=== PATIENT | male | born 1945 | race Caucasian/White ===

== ENCOUNTER → 2016-07-20 | Outpatient (CLI) | payer OTHER ==
[~2016-07-20] MED LIST: ATEN-60; FLUT100M7; FURO40TA OR; HYDR-1421 OR; IBUP1POW8; LASIX; POTA-167 OR; SIMV-8; TIOTCAP; TRIATAB3 OR
[2016-07-20 13:19] LABS: Basophils # (auto) 0.1 uL; Basophils % (auto) 0.9 % (0.0-2.0); DEFINITIVE VIEW TRANSMISSION; Eosinophils # (auto) 0.9 uL; Eosinophils % (auto) 11.4 % (0.0-7.0); Hematocrit 41.7 % (41.0-53.0); Hemoglobin 12.6 g/dL (13.5-17.5); Lymphocytes # (auto) 1.3 uL; Lymphocytes % (auto) 15.8 % (10.0-50.0); Mean Corpuscular Hemoglobin 26.2 pg (28.0-32.0); Mean Corpuscular Hgb Conc. 30.2 g/dL (32.0-36.0); Mean Corpuscular Volume 86.7 fL (80.0-100.0); Mean Platelet Volume 7.8 fL (7.4-10.4); Monocytes # (auto) 0.8 uL; Monocytes % (auto) 9.9 % (0.0-12.0); Neutrophils # (auto) 4.9 uL; Platelet Count (auto) 337 10^3/uL (140-450); Red Cell Distribution Width 16.2 % (11.6-16.0)
[2016-07-20 13:32] LABS: Urine Bilirubin Negative (Negative); Urine Blood Negative /uL (Negative); Urine Color Yellow (Yellow); Urine Glucose Normal (Normal); Urine Hyaline Cast FEW /lpf (0 - 2); Urine Ketone Negative (Negative); Urine Nitrite Negative (Negative); Urine RBC <1 /hpf (0 - 3); Urine Squamous Epithelial Cell FEW /hpf (<5); Urine Urobilinogen Normal (Negative); Urine pH 5.5 (5.0-8.0)
[2016-07-20 13:50] LABS: Potassium 4.3 mmol/L (3.5-5.1)
[2016-07-20 13:57] LABS: Albumin 3.3 g/dL (3.4-5.0); BUN/Creatinine Ratio 23.4; Calcium 9.3 mg/dL (8.5-10.1)
[2016-07-20 14:56] LABS: Bilirubin, Total 0.4 mg/dL (0.2-1.0); Total Protein 7.6 g/dL (6.4-8.2)
[2016-07-20 19:00] LABS: Uric Acid 9.5 mg/dL (3.5-7.2)
== END | disposition home or self-care (01) ==
LOC: LAB 12:24
DX: Z00.00 Encounter for general adult medical examination without abnormal findings (principal); N40.0 Benign prostatic hyperplasia without lower urinary tract symptoms; I10 Essential (primary) hypertension; N18.3 Chronic kidney disease, stage 3 (moderate)
CPT/HCPCS: 36415; 80053; 80061; 81001; 83615; 84153; 84154; 84443; 84550; 85025

== ENCOUNTER → 2016-08-10 | Outpatient (CLI) | payer OTHER | END | disposition home or self-care (01) | LOC: LAB 12:00 | DX: R91.8 Other nonspecific abnormal finding of lung field (principal); J98.4 Other disorders of lung | CPT/HCPCS: 36415; 82565; 84520 ==

== ENCOUNTER → 2016-08-29 | Outpatient (CLI) | payer OTHER ==
[~2016-08-29] MED LIST changes: +ALBUAER3 IN; +ALEN35TA18 PO; +ALL100T PO; -TIOTCAP; +TIOTCAP IN
== END | disposition home or self-care (01) ==
LOC: LAB 10:00
PROVIDERS: ATTEND Physician Assistant
DX: L57.0 Actinic keratosis (principal)

== ENCOUNTER → 2016-09-02 | Outpatient (CLI) | payer OTHER ==
[2016-09-02 14:21] LABS: Basophils # (auto) 0 uL; Basophils % (auto) 0.5 % (0.0-2.0); DEFINITIVE VIEW TRANSMISSION; Eosinophils # (auto) 0.9 uL; Eosinophils % (auto) 10.3 % (0.0-7.0); Hemoglobin 12.3 g/dL (13.5-17.5); Lymphocytes # (auto) 1.5 uL; Lymphocytes % (auto) 17.8 % (10.0-50.0); Mean Corpuscular Hemoglobin 27.5 pg (28.0-32.0); Mean Corpuscular Hgb Conc. 32.5 g/dL (32.0-36.0); Mean Corpuscular Volume 84.6 fL (80.0-100.0); Mean Platelet Volume 7.7 fL (7.4-10.4); Monocytes # (auto) 0.8 uL; Monocytes % (auto) 9.9 % (0.0-12.0); Neutrophils # (auto) 5.2 uL; Neutrophils % (auto) 61.5 % (37.0-80.0); Platelet Count (auto) 402 10^3/uL (140-450); Red Cell Distribution Width 16.3 % (11.6-16.0); White Blood Cell 8.4 10^3/uL (4.4-10.8)
[2016-09-02 14:40] LABS: INR 0.99 (0.9-1.15); Prothrombin Time 10.2 sec (9.37-12.3)
== END | disposition home or self-care (01) ==
LOC: LAB 13:39
PROVIDERS: ATTEND Internal Medicine Pulmonary Disease
DX: Z01.812 Encounter for preprocedural laboratory examination (principal)
CPT/HCPCS: 36415; 85025; 85610; 85730

== ENCOUNTER → 2016-09-05 | Day surgery (SDC) | payer OTHER ==
[~2016-09-05] VITALS: Ht 175.3 cm; Wt 103.0 kg
[~2016-09-05] MED LIST changes: +EPINEPHrine HCL 1 MG/1 ML AMP ONE; +FLUMAZENIL 0.1 MG/ML INJ 10ML MDV IV ONE; -FLUT100M7; -HYDR-1421 OR; -IBUP1POW8; -LASIX; +LIDOCAINE 2%HCL (LOCAL ANESTH.) INJ 20ML MDV IN ONE; +LIDOCAINE 2%HCL (LOCAL ANESTH.) INJ 20ML MDV ONE; +LIDOCAINE HCL 2 % INJ 2ML MPF NEB ONE; +LIDOCAINE HCL 2% TOP JELLY 5ML TOP ONE; +MEPERIDINE HCL (50 MG/ML) 1 ML VIAL IM ONE; +SODIUM CHLORIDE LOCK 30 ML ONE; -TRIATAB3 OR
[2016-09-05] MEDS: MIDAZOLAM HCL 5 MG/ML-1ML VIAL ONE ×5 (14:43→15:06)
[2016-09-05 16:22] VITALS: BP 103/65
== END | disposition home or self-care (01) ==
LOC: GI 12:19
PROVIDERS: ATTEND Internal Medicine Pulmonary Disease
DX: C34.12 Malignant neoplasm of upper lobe, left bronchus or lung (principal); J44.9 Chronic obstructive pulmonary disease, unspecified; I50.9 Heart failure, unspecified; J43.9 Emphysema, unspecified; E66.9 Obesity, unspecified; Z87.891 Personal history of nicotine dependence
CPT/HCPCS: 31625; 87070; 87205; 94640; J0171; J2175; J2250

== ENCOUNTER → 2016-09-28 | Outpatient (CLI) | payer OTHER ==
[~2016-09-28] MED LIST changes: -EPINEPHrine HCL 1 MG/1 ML AMP ONE; -FLUMAZENIL 0.1 MG/ML INJ 10ML MDV IV ONE; -LIDOCAINE 2%HCL (LOCAL ANESTH.) INJ 20ML MDV IN ONE; -LIDOCAINE 2%HCL (LOCAL ANESTH.) INJ 20ML MDV ONE; -LIDOCAINE HCL 2 % INJ 2ML MPF NEB ONE; -LIDOCAINE HCL 2% TOP JELLY 5ML TOP ONE; -MEPERIDINE HCL (50 MG/ML) 1 ML VIAL IM ONE; -SODIUM CHLORIDE LOCK 30 ML ONE
[2016-09-28 13:30] LABS: Basophils # (auto) 0.1 uL; Basophils % (auto) 0.8 % (0.0-2.0); DEFINITIVE VIEW TRANSMISSION; Eosinophils % (auto) 11.7 % (0.0-7.0); Hematocrit 37.2 % (41.0-53.0); Hemoglobin 11.8 g/dL (13.5-17.5); Lymphocytes # (auto) 1.4 uL; Lymphocytes % (auto) 16.6 % (10.0-50.0); Mean Corpuscular Hgb Conc. 31.6 g/dL (32.0-36.0); Mean Corpuscular Volume 85.5 fL (80.0-100.0); Mean Platelet Volume 7.2 fL (7.4-10.4); Monocytes # (auto) 0.7 uL; Monocytes % (auto) 8.6 % (0.0-12.0); Neutrophils # (auto) 5.3 uL; Neutrophils % (auto) 62.3 % (37.0-80.0); Platelet Count (auto) 365 10^3/uL (140-450); Red Cell Distribution Width 16.2 % (11.6-16.0); White Blood Cell 8.6 10^3/uL (4.4-10.8)
[2016-09-28 13:46] LABS: INR 0.94 (0.9-1.15); Prothrombin Time 10.2 sec (9.37-12.3)
== END | disposition home or self-care (01) ==
LOC: LAB 13:10
PROVIDERS: ATTEND Internal Medicine
DX: Z01.812 Encounter for preprocedural laboratory examination (principal)
CPT/HCPCS: 36415; 85025; 85610; 85730

== ENCOUNTER → 2016-09-29 | Outpatient (CLI) | payer OTHER ==
[~2016-09-29] MED LIST changes: +FLUMAZENIL 0.1 MG/ML INJ 10ML MDV IV ONE; +LIDOCAINE 2%HCL (LOCAL ANESTH.) INJ 20ML MDV ONE; +MIDAZOLAM HCL 1MG/1ML-2 ML VIAL ONE; +NALOXONE HCL 0.4 MG/ML VIAL ONE; +fentaNYL CITRATE 100 MCG/2 ML VL ONE; +methylPREDNISolone SOD SUCC 125 MG/2 ML VL ONE
== END | disposition home or self-care (01) ==
LOC: CT 08:46
PROVIDERS: ATTEND Internal Medicine
DX: R91.8 Other nonspecific abnormal finding of lung field (principal); Z87.891 Personal history of nicotine dependence; I51.7 Cardiomegaly; J81.1 Chronic pulmonary edema; J98.11 Atelectasis
CPT/HCPCS: 10022; 71010; 71250; 77012; J2250; J3010

== ENCOUNTER → 2016-10-24 | Outpatient (CLI) | payer OTHER ==
[~2016-10-24] MED LIST changes: -FLUMAZENIL 0.1 MG/ML INJ 10ML MDV IV ONE; -LIDOCAINE 2%HCL (LOCAL ANESTH.) INJ 20ML MDV ONE; -MIDAZOLAM HCL 1MG/1ML-2 ML VIAL ONE; -NALOXONE HCL 0.4 MG/ML VIAL ONE; -fentaNYL CITRATE 100 MCG/2 ML VL ONE; -methylPREDNISolone SOD SUCC 125 MG/2 ML VL ONE
== END | disposition home or self-care (01) ==
LOC: LAB 10:00
PROVIDERS: ATTEND Physician Assistant
DX: C44.42 Squamous cell carcinoma of skin of scalp and neck (principal)

== ENCOUNTER → 2016-11-04 | Outpatient (CLI) | payer OTHER ==
[2016-11-04 11:39] LABS: Basophils # (auto) 0 uL; Basophils % (auto) 0.5 % (0.0-2.0); DEFINITIVE VIEW TRANSMISSION; Eosinophils # (auto) 0.9 uL; Eosinophils % (auto) 11.8 % (0.0-7.0); Hematocrit 35.2 % (41.0-53.0); Hemoglobin 11.4 g/dL (13.5-17.5); Lymphocytes # (auto) 1.1 uL; Lymphocytes % (auto) 14.5 % (10.0-50.0); Mean Corpuscular Hemoglobin 27.2 pg (28.0-32.0); Mean Corpuscular Hgb Conc. 32.4 g/dL (32.0-36.0); Mean Corpuscular Volume 84.1 fL (80.0-100.0); Mean Platelet Volume 6.8 fL (7.4-10.4); Monocytes # (auto) 0.9 uL; Monocytes % (auto) 11.7 % (0.0-12.0); Neutrophils # (auto) 4.6 uL; Neutrophils % (auto) 61.5 % (37.0-80.0); Platelet Count (auto) 374 10^3/uL (140-450); Red Cell Distribution Width 16.7 % (11.6-16.0); White Blood Cell 7.5 10^3/uL (4.4-10.8)
[2016-11-04 12:01] LABS: BUN/Creatinine Ratio 25.9; Bilirubin, Total 0.3 mg/dL (0.2-1.0); Potassium 4.7 mmol/L (3.5-5.1); Total Protein 7.4 g/dL (6.4-8.2)
== END | disposition home or self-care (01) ==
LOC: LAB 11:25
PROVIDERS: ATTEND Internal Medicine
DX: C34.12 Malignant neoplasm of upper lobe, left bronchus or lung (principal)
CPT/HCPCS: 36415; 80053; 83615; 85025

== ENCOUNTER → 2016-11-15 | Outpatient (CLI) | payer OTHER ==
[2016-11-15 08:52] LABS: Albumin 2.8 g/dL (3.4-5.0); BUN/Creatinine Ratio 24.3; Bilirubin, Total 0.4 mg/dL (0.2-1.0); Potassium 4.1 mmol/L (3.5-5.1); Total Protein 7.4 g/dL (6.4-8.2)
[2016-11-15 08:56] LABS: Basophils # (auto) 0 uL; Basophils % (auto) 0.4 % (0.0-2.0); Eosinophils # (auto) 0.7 uL; Eosinophils % (auto) 6.5 % (0.0-7.0); Hematocrit 34.1 % (41.0-53.0); Hemoglobin 11.1 g/dL (13.5-17.5); Lymphocytes # (auto) 1.4 uL; Lymphocytes % (auto) 13.2 % (10.0-50.0); Mean Corpuscular Hemoglobin 27.4 pg (28.0-32.0); Mean Corpuscular Hgb Conc. 32.7 g/dL (32.0-36.0); Mean Corpuscular Volume 83.9 fL (80.0-100.0); Mean Platelet Volume 7.7 fL (7.4-10.4); Monocytes % (auto) 9.7 % (0.0-12.0); Neutrophils # (auto) 7.4 uL; Neutrophils % (auto) 70.2 % (37.0-80.0); Platelet Count (auto) 421 10^3/uL (140-450); Red Cell Distribution Width 16.3 % (11.6-16.0); White Blood Cell 10.5 10^3/uL (4.4-10.8)
== END | disposition home or self-care (01) ==
LOC: LAB 07:59
PROVIDERS: ATTEND Internal Medicine
DX: C34.12 Malignant neoplasm of upper lobe, left bronchus or lung (principal)
CPT/HCPCS: 36415; 80053; 83615; 85025

== ENCOUNTER → 2016-11-18 | Outpatient (CLI) | payer OTHER ==
[2016-11-18 13:24] LABS: Basophils # (auto) 0 uL; Basophils % (auto) 0.6 % (0.0-2.0); Eosinophils # (auto) 0.1 uL; Eosinophils % (auto) 1.7 % (0.0-7.0); Hemoglobin 11.6 g/dL (13.5-17.5); Lymphocytes # (auto) 1.4 uL; Lymphocytes % (auto) 16.8 % (10.0-50.0); Mean Corpuscular Hemoglobin 27.4 pg (28.0-32.0); Mean Corpuscular Hgb Conc. 32.3 g/dL (32.0-36.0); Mean Corpuscular Volume 84.7 fL (80.0-100.0); Mean Platelet Volume 7.5 fL (7.4-10.4); Monocytes # (auto) 0.3 uL; Monocytes % (auto) 3.8 % (0.0-12.0); Neutrophils # (auto) 6.5 uL; Neutrophils % (auto) 77.1 % (37.0-80.0); Platelet Count (auto) 396 10^3/uL (140-450); Red Cell Distribution Width 16.8 % (11.6-16.0); White Blood Cell 8.5 10^3/uL (4.4-10.8)
[2016-11-18 13:33] LABS: Albumin 2.9 g/dL (3.4-5.0); BUN/Creatinine Ratio 26.5; Bilirubin, Total 0.4 mg/dL (0.2-1.0); Calcium 9.1 mg/dL (8.5-10.1); Potassium 4.9 mmol/L (3.5-5.1); Total Protein 7.4 g/dL (6.4-8.2)
== END | disposition home or self-care (01) ==
LOC: LAB 12:57
PROVIDERS: ATTEND Internal Medicine
DX: C34.12 Malignant neoplasm of upper lobe, left bronchus or lung (principal)
CPT/HCPCS: 36415; 80053; 85025

== ENCOUNTER → 2016-11-25 | Outpatient (CLI) | payer OTHER ==
[2016-11-25 13:14] LABS: Basophils # (auto) 0 uL; Basophils % (auto) 0.6 % (0.0-2.0); Eosinophils # (auto) 0.1 uL; Eosinophils % (auto) 2.2 % (0.0-7.0); Hematocrit 36.1 % (41.0-53.0); Hemoglobin 11.7 g/dL (13.5-17.5); Lymphocytes # (auto) 1.2 uL; Lymphocytes % (auto) 25.3 % (10.0-50.0); Mean Corpuscular Hemoglobin 27.2 pg (28.0-32.0); Mean Corpuscular Hgb Conc. 32.4 g/dL (32.0-36.0); Mean Platelet Volume 7.5 fL (7.4-10.4); Monocytes # (auto) 0.2 uL; Monocytes % (auto) 3.8 % (0.0-12.0); Neutrophils # (auto) 3.3 uL; Neutrophils % (auto) 68.1 % (37.0-80.0); Platelet Count (auto) 345 10^3/uL (140-450); Red Cell Distribution Width 17.1 % (11.6-16.0); White Blood Cell 4.9 10^3/uL (4.4-10.8)
[2016-11-25 13:39] LABS: Albumin 3.1 g/dL (3.4-5.0); BUN/Creatinine Ratio 26.3; Bilirubin, Total 0.5 mg/dL (0.2-1.0); Potassium 4.4 mmol/L (3.5-5.1); Total Protein 7.4 g/dL (6.4-8.2)
== END | disposition home or self-care (01) ==
LOC: LAB 12:45
PROVIDERS: ATTEND Internal Medicine
DX: C34.12 Malignant neoplasm of upper lobe, left bronchus or lung (principal)
CPT/HCPCS: 36415; 80053; 85025

== ENCOUNTER → 2016-12-05 | Outpatient (CLI) | payer OTHER ==
[2016-12-05 08:22] LABS: Basophils # (auto) 0 uL; Basophils % (auto) 0.2 % (0.0-2.0); CONDITION Y; Eosinophils # (auto) 0.1 uL; Eosinophils % (auto) 2.2 % (0.0-7.0); Hemoglobin 10.9 g/dL (13.5-17.5); Lymphocytes # (auto) 0.8 uL; Lymphocytes % (auto) 28.3 % (10.0-50.0); Mean Corpuscular Hemoglobin 27.9 pg (28.0-32.0); Mean Corpuscular Hgb Conc. 33.1 g/dL (32.0-36.0); Mean Corpuscular Volume 84.2 fL (80.0-100.0); Mean Platelet Volume 7.1 fL (7.4-10.4); Monocytes # (auto) 0.2 uL; Monocytes % (auto) 6.1 % (0.0-12.0); Neutrophils # (auto) 1.8 uL; Neutrophils % (auto) 63.2 % (37.0-80.0); Platelet Count (auto) 181 10^3/uL (140-450); Red Cell Distribution Width 16.9 % (11.6-16.0); White Blood Cell 2.9 10^3/uL (4.4-10.8)
[2016-12-05 08:45] LABS: BUN/Creatinine Ratio 17.9; Bilirubin, Total 0.3 mg/dL (0.2-1.0); Calcium 8.5 mg/dL (8.5-10.1); Potassium 3.8 mmol/L (3.5-5.1); Total Protein 6.6 g/dL (6.4-8.2)
== END | disposition home or self-care (01) ==
LOC: LAB 08:05
PROVIDERS: ATTEND Internal Medicine
DX: C34.12 Malignant neoplasm of upper lobe, left bronchus or lung (principal)
CPT/HCPCS: 36415; 80053; 83615; 85025

== ENCOUNTER → 2016-12-09 | Outpatient (CLI) | payer OTHER ==
[2016-12-09 15:01] LABS: Basophils # (auto) 0 uL; Basophils % (auto) 0.4 % (0.0-2.0); CONDITION Y; Eosinophils # (auto) 0 uL; Hematocrit 32.6 % (41.0-53.0); Hemoglobin 10.8 g/dL (13.5-17.5); Lymphocytes # (auto) 0.8 uL; Lymphocytes % (auto) 21.5 % (10.0-50.0); Mean Corpuscular Hemoglobin 28.2 pg (28.0-32.0); Mean Corpuscular Hgb Conc. 33.1 g/dL (32.0-36.0); Mean Corpuscular Volume 85.2 fL (80.0-100.0); Mean Platelet Volume 7.7 fL (7.4-10.4); Monocytes # (auto) 0.1 uL; Monocytes % (auto) 1.6 % (0.0-12.0); Neutrophils % (auto) 75.5 % (37.0-80.0); Platelet Count (auto) 146 10^3/uL (140-450); Red Cell Distribution Width 17.9 % (11.6-16.0); White Blood Cell 3.9 10^3/uL (4.4-10.8)
[2016-12-09 15:23] LABS: Albumin 3.1 g/dL (3.4-5.0); BUN/Creatinine Ratio 20.6; Bilirubin, Total 0.5 mg/dL (0.2-1.0); Calcium 8.9 mg/dL (8.5-10.1); Potassium 4.7 mmol/L (3.5-5.1); Total Protein 6.5 g/dL (6.4-8.2)
== END | disposition home or self-care (01) ==
LOC: LAB 14:48
PROVIDERS: ATTEND Internal Medicine
DX: C34.12 Malignant neoplasm of upper lobe, left bronchus or lung (principal)
CPT/HCPCS: 36415; 80053; 83615; 85025

== ENCOUNTER → 2016-12-19 | Outpatient (CLI) | payer OTHER ==
[2016-12-19 09:59] LABS: Basophils # (auto) 0 uL; Basophils % (auto) 0.7 % (0.0-2.0); CONDITION Y; DEFINITIVE SEE PRINTOUT; Eosinophils # (auto) 0 uL; Hematocrit 30.2 % (41.0-53.0); Hemoglobin 10.3 g/dL (13.5-17.5); Lymphocytes # (auto) 0.6 uL; Lymphocytes % (auto) 32.1 % (10.0-50.0); Mean Corpuscular Hemoglobin 28.8 pg (28.0-32.0); Mean Corpuscular Volume 84.7 fL (80.0-100.0); Monocytes # (auto) 0.1 uL; Monocytes % (auto) 5.8 % (0.0-12.0); Neutrophils # (auto) 1.1 uL; Neutrophils % (auto) 60.4 % (37.0-80.0); Platelet Count (auto) 236 10^3/uL (140-450); Red Cell Distribution Width 18.3 % (11.6-16.0)
[2016-12-19 10:22] LABS: White Blood Cell 1.8 10^3/uL (4.4-10.8)
[2016-12-19 10:28] LABS: Calcium 8.8 mg/dL (8.5-10.1); Potassium 4.3 mmol/L (3.5-5.1)
== END | disposition home or self-care (01) ==
LOC: LAB 09:40
PROVIDERS: ATTEND Internal Medicine
DX: C34.2 Malignant neoplasm of middle lobe, bronchus or lung (principal)
CPT/HCPCS: 36415; 80048; 85025

== ENCOUNTER → 2017-01-24 | Outpatient (CLI) | payer OTHER ==
[2017-01-24 15:38] LABS: Basophils # (auto) 0 uL; Basophils % (auto) 0.3 % (0.0-2.0); CONDITION Y; DEFINITIVE SEE PRINTOUT; Eosinophils # (auto) 0.5 uL; Eosinophils % (auto) 10.2 % (0.0-7.0); Hematocrit 31.4 % (41.0-53.0); Hemoglobin 10.4 g/dL (13.5-17.5); Lymphocytes # (auto) 0.6 uL; Lymphocytes % (auto) 10.7 % (10.0-50.0); Mean Corpuscular Hemoglobin 30.9 pg (28.0-32.0); Mean Corpuscular Hgb Conc. 33.3 g/dL (32.0-36.0); Mean Corpuscular Volume 92.9 fL (80.0-100.0); Mean Platelet Volume 7.2 fL (7.4-10.4); Monocytes # (auto) 0.7 uL; Monocytes % (auto) 12.6 % (0.0-12.0); Neutrophils # (auto) 3.4 uL; Neutrophils % (auto) 66.2 % (37.0-80.0); Platelet Count (auto) 216 10^3/uL (140-450); SUSPECT SEE PRINTOUT; White Blood Cell 5.2 10^3/uL (4.4-10.8)
[2017-01-24 15:44] LABS: Red Cell Distribution Width 26.4 % (11.6-16.0)
[2017-01-24 16:01] LABS: Albumin 3.1 g/dL (3.4-5.0); BUN/Creatinine Ratio 19.8; Bilirubin, Total 0.3 mg/dL (0.2-1.0); Calcium 9.2 mg/dL (8.5-10.1); Potassium 4.4 mmol/L (3.5-5.1); Total Protein 7.2 g/dL (6.4-8.2)
[2017-01-24 16:40] LABS: Anisocytosis Moderate; Ovalocytes FEW; Platelet Estimate Adequate; Tear Drop Cells FEW
== END | disposition home or self-care (01) ==
LOC: LAB 15:13
PROVIDERS: ATTEND Internal Medicine
DX: C34.12 Malignant neoplasm of upper lobe, left bronchus or lung (principal)
CPT/HCPCS: 36415; 80053; 83615; 85025

== ENCOUNTER → 2017-02-07 | Outpatient (CLI) | payer OTHER ==
[2017-02-07 10:07] LABS: Basophils # (auto) 0 uL; Basophils % (auto) 0.2 % (0.0-2.0); CONDITION Y; DEFINITIVE SEE PRINTOUT; Eosinophils # (auto) 0.3 uL; Hematocrit 29.6 % (41.0-53.0); Hemoglobin 9.9 g/dL (13.5-17.5); Lymphocytes # (auto) 0.6 uL; Lymphocytes % (auto) 13.2 % (10.0-50.0); Mean Corpuscular Hemoglobin 32.1 pg (28.0-32.0); Mean Corpuscular Hgb Conc. 33.3 g/dL (32.0-36.0); Mean Corpuscular Volume 96.3 fL (80.0-100.0); Mean Platelet Volume 7.6 fL (7.4-10.4); Monocytes # (auto) 0.5 uL; Monocytes % (auto) 10.9 % (0.0-12.0); Neutrophils # (auto) 3.1 uL; Neutrophils % (auto) 68.7 % (37.0-80.0); Platelet Count (auto) 221 10^3/uL (140-450); White Blood Cell 4.4 10^3/uL (4.4-10.8)
[2017-02-07 10:09] LABS: Red Cell Distribution Width 24.5 % (11.6-16.0)
[2017-02-07 10:11] LABS: BUN/Creatinine Ratio 19.8; Calcium 9.2 mg/dL (8.5-10.1); Potassium 4.4 mmol/L (3.5-5.1)
[2017-02-07 11:45] LABS: Anisocytosis Slight; Large Platelets FEW; Platelet Estimate Adequate
== END | disposition home or self-care (01) ==
LOC: LAB 09:30
PROVIDERS: ATTEND Internal Medicine
DX: C34.2 Malignant neoplasm of middle lobe, bronchus or lung (principal); I50.32 Chronic diastolic (congestive) heart failure; J44.9 Chronic obstructive pulmonary disease, unspecified; N18.3 Chronic kidney disease, stage 3 (moderate); D63.1 Anemia in chronic kidney disease
CPT/HCPCS: 36415; 80048; 85025

== ENCOUNTER → 2017-02-16 | Outpatient (CLI) | payer OTHER ==
[2017-02-16 13:44] LABS: Basophils # (auto) 0 uL; Basophils % (auto) 0.5 % (0.0-2.0); CONDITION Y; DEFINITIVE SEE PRINTOUT; Eosinophils # (auto) 0.1 uL; Eosinophils % (auto) 6.3 % (0.0-7.0); Hematocrit 26.4 % (41.0-53.0); Lymphocytes # (auto) 0.4 uL; Lymphocytes % (auto) 19.9 % (10.0-50.0); Mean Corpuscular Hemoglobin 32.8 pg (28.0-32.0); Mean Corpuscular Volume 96.3 fL (80.0-100.0); Mean Platelet Volume 8.1 fL (7.4-10.4); Monocytes # (auto) 0.2 uL; Monocytes % (auto) 10.2 % (0.0-12.0); Neutrophils # (auto) 1.2 uL; Neutrophils % (auto) 63.1 % (37.0-80.0); Platelet Count (auto) 113 10^3/uL (140-450)
[2017-02-16 13:48] LABS: Red Cell Distribution Width 21.3 % (11.6-16.0)
[2017-02-16 13:58] LABS: White Blood Cell 1.9 10^3/uL (4.4-10.8)
[2017-02-16 14:18] LABS: Anisocytosis Slight
[2017-02-16 14:19] LABS: Platelet Estimate Decreased
== END | disposition home or self-care (01) ==
LOC: LAB 13:27
PROVIDERS: ATTEND Internal Medicine
DX: C34.10 Malignant neoplasm of upper lobe, unspecified bronchus or lung (principal)
CPT/HCPCS: 36415; 85025

== ENCOUNTER → 2017-02-27 | Outpatient (CLI) | payer OTHER ==
[2017-02-27 13:54] LABS: Basophils # (auto) 0 uL; Basophils % (auto) 0.3 % (0.0-2.0); CONDITION Y; DEFINITIVE SEE PRINTOUT; Eosinophils # (auto) 0.1 uL; Hematocrit 25.9 % (41.0-53.0); Hemoglobin 8.7 g/dL (13.5-17.5); Lymphocytes # (auto) 0.6 uL; Lymphocytes % (auto) 12.3 % (10.0-50.0); Mean Corpuscular Hgb Conc. 33.6 g/dL (32.0-36.0); Mean Corpuscular Volume 98.4 fL (80.0-100.0); Mean Platelet Volume 7.5 fL (7.4-10.4); Monocytes # (auto) 0.5 uL; Monocytes % (auto) 11.5 % (0.0-12.0); Neutrophils # (auto) 3.4 uL; Neutrophils % (auto) 72.9 % (37.0-80.0); Platelet Count (auto) 124 10^3/uL (140-450); White Blood Cell 4.7 10^3/uL (4.4-10.8)
[2017-02-27 14:13] LABS: Red Cell Distribution Width 20.8 % (11.6-16.0)
[2017-02-27 14:33] LABS: Albumin 2.9 g/dL (3.4-5.0); BUN/Creatinine Ratio 17.1; Bilirubin, Total 0.2 mg/dL (0.2-1.0); Total Protein 6.6 g/dL (6.4-8.2)
[2017-02-27 15:18] LABS: Anisocytosis Slight; Platelet Estimate Decreased; Stomatocytes Few; Tear Drop Cells FEW
[2017-02-27 15:19] LABS: Ovalocytes FEW
== END | disposition home or self-care (01) ==
LOC: LAB 13:29
PROVIDERS: ATTEND Internal Medicine
DX: C34.91 Malignant neoplasm of unspecified part of right bronchus or lung (principal); J44.9 Chronic obstructive pulmonary disease, unspecified; N18.3 Chronic kidney disease, stage 3 (moderate); I50.32 Chronic diastolic (congestive) heart failure
CPT/HCPCS: 36415; 80053; 83615; 85025

== ENCOUNTER → 2017-03-07 | Outpatient (CLI) | payer OTHER | END | disposition home or self-care (01) | LOC: LAB 13:20 | PROVIDERS: ATTEND Internal Medicine | DX: C34.12 Malignant neoplasm of upper lobe, left bronchus or lung (principal) | CPT/HCPCS: 36415; 82565; 84520 ==

== ENCOUNTER → 2017-03-16 | Outpatient (CLI) | payer OTHER | END | disposition home or self-care (01) | LOC: LAB 06:16 | PROVIDERS: ATTEND Registered Nurse General Practice | DX: L97.329 Non-pressure chronic ulcer of left ankle with unspecified severity (principal) | CPT/HCPCS: 87077; 87186; 87205 ==

== ENCOUNTER → 2017-04-17 | Outpatient (CLI) | payer OTHER ==
[2017-04-17 12:41] LABS: Basophils # (auto) 0 uL; Basophils % (auto) 0.4 % (0.0-2.0); Eosinophils # (auto) 0.1 uL; Eosinophils % (auto) 5.8 % (0.0-7.0); Hemoglobin 10.8 g/dL (13.5-17.5); Lymphocytes # (auto) 0.5 uL; Lymphocytes % (auto) 22.8 % (10.0-50.0); Mean Corpuscular Hemoglobin 32.9 pg (28.0-32.0); Mean Corpuscular Hgb Conc. 32.8 g/dL (32.0-36.0); Mean Corpuscular Volume 100.2 fL (80.0-100.0); Monocytes # (auto) 0.2 uL; Monocytes % (auto) 10.2 % (0.0-12.0); Neutrophils # (auto) 1.4 uL; Neutrophils % (auto) 60.8 % (37.0-80.0); Nucleated Red Blood Cells % 0.1 %; Platelet Count (auto) 108 10^3/uL (140-450); Red Blood Cells 3.29 10^6/uL (4.5-5.90); Red Cell Distribution Width 15.4 % (11.8-14.3); White Blood Cell 2.3 10^3/uL (4.4-10.8)
[2017-04-17 13:03] LABS: Albumin 3.1 g/dL (3.4-5.0); BUN/Creatinine Ratio 15.8; Bilirubin, Total 0.4 mg/dL (0.2-1.0); Calcium 9.2 mg/dL (8.5-10.1); Potassium 3.8 mmol/L (3.5-5.1); Total Protein 7.6 g/dL (6.4-8.2)
== END | disposition home or self-care (01) ==
LOC: LAB 12:28
PROVIDERS: ATTEND Internal Medicine
DX: C34.12 Malignant neoplasm of upper lobe, left bronchus or lung (principal); J44.9 Chronic obstructive pulmonary disease, unspecified; I50.9 Heart failure, unspecified
CPT/HCPCS: 36415; 80053; 83615; 85025

== ENCOUNTER → 2017-04-28 | Outpatient (CLI) | payer OTHER ==
[2017-04-28 14:59] LABS: Basophils # (auto) 0 uL; Eosinophils # (auto) 0.2 uL; Hemoglobin 9.8 g/dL (13.5-17.5); Lymphocytes # (auto) 0.5 uL; Platelet Count (auto) 56 10^3/uL (140-450)
[2017-04-28 15:02] LABS: Basophils % (auto) 0.3 % (0.0-2.0); Eosinophils % (auto) 3.6 % (0.0-7.0); Hematocrit 29.5 % (41.0-53.0); Lymphocytes % (auto) 11.9 % (10.0-50.0); Mean Corpuscular Hemoglobin 33.6 pg (28.0-32.0); Mean Corpuscular Hgb Conc. 33.2 g/dL (32.0-36.0); Monocytes # (auto) 0.5 uL; Monocytes % (auto) 12.1 % (0.0-12.0); Neutrophils # (auto) 3.3 uL; Neutrophils % (auto) 72.1 % (37.0-80.0); Nucleated Red Blood Cells % 0.2 %; Red Blood Cells 2.92 10^6/uL (4.5-5.90); Red Cell Distribution Width 16.6 % (11.8-14.3); White Blood Cell 4.5 10^3/uL (4.4-10.8)
== END | disposition home or self-care (01) ==
LOC: LAB 14:38
PROVIDERS: ATTEND Internal Medicine
DX: D64.9 Anemia, unspecified (principal); D69.6 Thrombocytopenia, unspecified; J44.9 Chronic obstructive pulmonary disease, unspecified
CPT/HCPCS: 36415; 84132; 85025

== ENCOUNTER → 2017-05-04 | Outpatient (CLI) | payer OTHER ==
[2017-05-04 16:25] LABS: White Blood Cell 3.5 10^3/uL (4.4-10.8)
[2017-05-04 16:29] LABS: Hematocrit 30.1 % (41.0-53.0); Mean Corpuscular Hemoglobin 33.6 pg (28.0-32.0); Mean Corpuscular Hgb Conc. 33.1 g/dL (32.0-36.0); Mean Corpuscular Volume 101.4 fL (80.0-100.0); Mean Platelet Volume 7.6 fL (6.9-10.8); Platelet Count (auto) 257 10^3/uL (140-450); Red Cell Distribution Width 17.1 % (11.8-14.3)
[2017-05-04 16:41] LABS: Aspartate Aminotransferase 35 U/L (15-37)
[2017-05-04 16:50] LABS: Metamyelocytes % 0; Myelocytes % 0; Promyelocytes % 0; Reactive Lymphocytes 0
[2017-05-04 20:16] LABS: Macrocytosis Slight; Platelet Estimate Adequate
== END | disposition home or self-care (01) ==
LOC: LAB 15:29
PROVIDERS: ATTEND Internal Medicine
DX: C34.90 Malignant neoplasm of unspecified part of unspecified bronchus or lung (principal); R94.5 Abnormal results of liver function studies
CPT/HCPCS: 36415; 84450; 84460; 85007; 85027

== ENCOUNTER → 2017-05-19 | Outpatient (CLI) | payer OTHER ==
[2017-05-19 15:03] LABS: Hematocrit 33.7 % (41.0-53.0); Hemoglobin 11.1 g/dL (13.5-17.5); Mean Corpuscular Hemoglobin 33.1 pg (28.0-32.0); Mean Corpuscular Hgb Conc. 32.9 g/dL (32.0-36.0); Mean Corpuscular Volume 100.5 fL (80.0-100.0); Mean Platelet Volume 7.2 fL (6.9-10.8); Platelet Count (auto) 217 10^3/uL (140-450); Red Cell Distribution Width 17.6 % (11.8-14.3); White Blood Cell 6.6 10^3/uL (4.4-10.8)
[2017-05-19 15:12] LABS: Metamyelocytes % 0; Myelocytes % 0; Promyelocytes % 0; Reactive Lymphocytes 0
[2017-05-19 15:21] LABS: BUN/Creatinine Ratio 17.9; Bilirubin, Total 0.2 mg/dL (0.2-1.0); Potassium 3.8 mmol/L (3.5-5.1)
[2017-05-19 17:13] LABS: Macrocytosis Slight; Platelet Estimate Adequate
== END | disposition home or self-care (01) ==
LOC: LAB 14:28
PROVIDERS: ATTEND Internal Medicine
DX: D64.9 Anemia, unspecified (principal); D69.6 Thrombocytopenia, unspecified; C34.92 Malignant neoplasm of unspecified part of left bronchus or lung; I50.9 Heart failure, unspecified; J43.9 Emphysema, unspecified
CPT/HCPCS: 36415; 80053; 83615; 85007; 85027

== ENCOUNTER → 2017-05-29 | Outpatient (CLI) | payer OTHER ==
[2017-05-29 16:24] LABS: Basophils # (auto) 0 uL; Basophils % (auto) 0.5 % (0.0-2.0); Eosinophils # (auto) 0.3 uL; Eosinophils % (auto) 7.8 % (0.0-7.0); Hemoglobin 9.6 g/dL (13.5-17.5); Lymphocytes # (auto) 0.4 uL; Lymphocytes % (auto) 12.5 % (10.0-50.0); Mean Corpuscular Hemoglobin 32.6 pg (28.0-32.0); Mean Corpuscular Volume 98.7 fL (80.0-100.0); Mean Platelet Volume 6.6 fL (6.9-10.8); Monocytes # (auto) 0.3 uL; Monocytes % (auto) 9.3 % (0.0-12.0); Neutrophils # (auto) 2.3 uL; Neutrophils % (auto) 69.9 % (37.0-80.0); Nucleated Red Blood Cells % 0.1 %; Platelet Count (auto) 123 10^3/uL (140-450); Red Cell Distribution Width 17.1 % (11.8-14.3); White Blood Cell 3.3 10^3/uL (4.4-10.8)
== END | disposition home or self-care (01) ==
LOC: LAB 14:03
PROVIDERS: ATTEND Internal Medicine
DX: C34.12 Malignant neoplasm of upper lobe, left bronchus or lung (principal)
CPT/HCPCS: 36415; 85025

== ENCOUNTER → 2017-06-09 | Outpatient (CLI) | payer OTHER ==
[2017-06-09 14:29] LABS: Hemoglobin 9.5 g/dL (13.5-17.5); White Blood Cell 3.4 10^3/uL (4.4-10.8)
[2017-06-09 14:31] LABS: Hematocrit 28.6 % (41.0-53.0); Mean Corpuscular Hemoglobin 32.9 pg (28.0-32.0); Mean Corpuscular Hgb Conc. 33.3 g/dL (32.0-36.0); Mean Corpuscular Volume 98.7 fL (80.0-100.0); Mean Platelet Volume 8.5 fL (6.9-10.8); Red Cell Distribution Width 17.4 % (11.8-14.3)
[2017-06-09 14:43] LABS: Platelet Count (auto) 32 10^3/uL (140-450)
[2017-06-09 14:44] LABS: Promyelocytes % 0; Reactive Lymphocytes 0
[2017-06-09 14:48] LABS: Albumin 2.4 g/dL (3.4-5.0); BUN/Creatinine Ratio 14.3; Bilirubin, Total 0.3 mg/dL (0.2-1.0); Calcium 8.6 mg/dL (8.5-10.1); Potassium 3.7 mmol/L (3.5-5.1); Total Protein 6.3 g/dL (6.4-8.2)
[2017-06-09 15:07] LABS: Metamyelocytes % 1; Myelocytes % 2; Platelet Estimate Decreased
== END | disposition home or self-care (01) ==
LOC: LAB 14:14
PROVIDERS: ATTEND Internal Medicine
DX: C34.12 Malignant neoplasm of upper lobe, left bronchus or lung (principal)
CPT/HCPCS: 36415; 80053; 83615; 85007; 85027

== ENCOUNTER → 2017-06-15 | Outpatient (CLI) | payer OTHER ==
[~2017-06-15] MED LIST changes: +ASPI81CH43 PO; +TAM04C PO
[2017-06-15 10:48] LABS: Hemoglobin 10.2 g/dL (13.5-17.5); Mean Corpuscular Hgb Conc. 32.3 g/dL (32.0-36.0)
[2017-06-15 10:55] LABS: Hematocrit 31.5 % (41.0-53.0); Mean Corpuscular Hemoglobin 32.6 pg (28.0-32.0); Mean Corpuscular Volume 100.8 fL (80.0-100.0); Platelet Count (auto) 235 10^3/uL (140-450); Red Blood Cells 3.12 10^6/uL (4.5-5.90); Red Cell Distribution Width 19.4 % (11.8-14.3); White Blood Cell 2.9 10^3/uL (4.4-10.8)
[2017-06-15 10:58] LABS: Band Neutrophils % (manual) 0; Basophils % (manual) 0 (0.0-2.0); Blast Cells 0; Metamyelocytes % 0; Myelocytes % 0; Promyelocytes % 0; Reactive Lymphocytes 0
[2017-06-15 11:11] LABS: Albumin 2.6 g/dL (3.4-5.0); BUN/Creatinine Ratio 15.8; Bilirubin, Total 0.3 mg/dL (0.2-1.0); Calcium 8.5 mg/dL (8.5-10.1); Total Protein 6.3 g/dL (6.4-8.2)
[2017-06-15 11:22] LABS: Eosinophils % (manual) 13 (0-7); Lymphocytes % (manual) 20 (10.0-50.0); Monocytes % (manual) 27 (0-12)
== END | disposition home or self-care (01) ==
LOC: LAB 10:31
PROVIDERS: ATTEND Internal Medicine
DX: C34.12 Malignant neoplasm of upper lobe, left bronchus or lung (principal)
CPT/HCPCS: 36415; 80053; 85007; 85027

== ENCOUNTER → 2017-06-20 | Outpatient (CLI) | payer OTHER ==
[2017-06-20 13:48] LABS: Hematocrit 34.9 % (41.0-53.0); Hemoglobin 11.2 g/dL (13.5-17.5); Mean Corpuscular Hemoglobin 32.1 pg (28.0-32.0); Mean Corpuscular Hgb Conc. 32.1 g/dL (32.0-36.0); Mean Corpuscular Volume 99.8 fL (80.0-100.0); Platelet Count (auto) 234 10^3/uL (140-450); Red Cell Distribution Width 18.8 % (11.8-14.3); White Blood Cell 3.3 10^3/uL (4.4-10.8)
[2017-06-20 13:57] LABS: Basophils % (manual) 0 (0.0-2.0); Blast Cells 0; Metamyelocytes % 0; Myelocytes % 0; Promyelocytes % 0; Reactive Lymphocytes 0
[2017-06-20 14:09] LABS: Band Neutrophils % (manual) 1; Eosinophils % (manual) 6 (0-7); Lymphocytes % (manual) 20 (10.0-50.0); Monocytes % (manual) 16 (0-12)
[2017-06-20 14:32] LABS: Albumin 2.9 g/dL (3.4-5.0); BUN/Creatinine Ratio 12.9; Bilirubin, Total 0.3 mg/dL (0.2-1.0); Calcium 8.9 mg/dL (8.5-10.1); Potassium 3.9 mmol/L (3.5-5.1); Total Protein 6.7 g/dL (6.4-8.2)
== END | disposition home or self-care (01) ==
LOC: LAB 13:29
PROVIDERS: ATTEND Internal Medicine
DX: C34.12 Malignant neoplasm of upper lobe, left bronchus or lung (principal)
CPT/HCPCS: 36415; 80053; 83615; 85007; 85027

== ENCOUNTER → 2017-06-26 | Outpatient (CLI) | payer OTHER ==
[2017-06-26 14:21] LABS: Basophils # (auto) 0 uL; Eosinophils # (auto) 0.1 uL; Eosinophils % (auto) 4.5 % (0.0-7.0); Hematocrit 30.8 % (41.0-53.0); Lymphocytes # (auto) 0.3 uL; Lymphocytes % (auto) 11.8 % (10.0-50.0); Mean Corpuscular Hemoglobin 32.4 pg (28.0-32.0); Mean Corpuscular Hgb Conc. 32.5 g/dL (32.0-36.0); Mean Corpuscular Volume 99.5 fL (80.0-100.0); Monocytes # (auto) 0.3 uL; Monocytes % (auto) 9.3 % (0.0-12.0); Neutrophils # (auto) 2.2 uL; Neutrophils % (auto) 73.4 % (37.0-80.0); Platelet Count (auto) 122 10^3/uL (140-450); Red Blood Cells 3.09 10^6/uL (4.5-5.90); Red Cell Distribution Width 17.8 % (11.8-14.3)
[2017-06-26 14:32] LABS: Albumin 2.6 g/dL (3.4-5.0); BUN/Creatinine Ratio 12.8; Bilirubin, Total 0.3 mg/dL (0.2-1.0); Calcium 8.6 mg/dL (8.5-10.1); Total Protein 6.5 g/dL (6.4-8.2)
== END | disposition home or self-care (01) ==
LOC: LAB 13:52
PROVIDERS: ATTEND Internal Medicine
DX: C34.12 Malignant neoplasm of upper lobe, left bronchus or lung (principal)
CPT/HCPCS: 36415; 80053; 83615; 85025

== ENCOUNTER → 2017-07-10 | Outpatient (CLI) | payer OTHER ==
[2017-07-10 14:13] LABS: Basophils # (auto) 0 uL; Basophils % (auto) 0.4 % (0.0-2.0); Eosinophils # (auto) 0.3 uL; Eosinophils % (auto) 6.8 % (0.0-7.0); Hemoglobin 10.1 g/dL (13.5-17.5); Lymphocytes # (auto) 0.4 uL; Lymphocytes % (auto) 9.8 % (10.0-50.0); Mean Corpuscular Hemoglobin 32.7 pg (28.0-32.0); Mean Corpuscular Hgb Conc. 32.7 g/dL (32.0-36.0); Mean Corpuscular Volume 99.9 fL (80.0-100.0); Monocytes # (auto) 0.7 uL; Platelet Count (auto) 154 10^3/uL (140-450); White Blood Cell 4.4 10^3/uL (4.4-10.8)
[2017-07-10 14:33] LABS: Albumin 2.7 g/dL (3.4-5.0); BUN/Creatinine Ratio 8.8; Bilirubin, Total 0.3 mg/dL (0.2-1.0); Calcium 8.5 mg/dL (8.5-10.1); Potassium 3.6 mmol/L (3.5-5.1); Total Protein 6.3 g/dL (6.4-8.2)
== END | disposition home or self-care (01) ==
LOC: LAB 13:41
PROVIDERS: ATTEND Internal Medicine
DX: C34.12 Malignant neoplasm of upper lobe, left bronchus or lung (principal)
CPT/HCPCS: 36415; 80053; 83615; 85025

== ENCOUNTER → 2017-07-17 | Outpatient (CLI) | payer OTHER ==
[2017-07-17 15:30] LABS: Hemoglobin 10.4 g/dL (13.5-17.5); Mean Corpuscular Hgb Conc. 33.1 g/dL (32.0-36.0); Red Blood Cells 3.17 10^6/uL (4.5-5.90)
[2017-07-17 15:32] LABS: Hematocrit 31.3 % (41.0-53.0); Mean Corpuscular Hemoglobin 32.6 pg (28.0-32.0); Mean Corpuscular Volume 98.7 fL (80.0-100.0); Platelet Count (auto) 206 10^3/uL (140-450); Red Cell Distribution Width 18.7 % (11.8-14.3)
[2017-07-17 15:45] LABS: Band Neutrophils % (manual) 0; Basophils % (manual) 0 (0.0-2.0); Blast Cells 0; Promyelocytes % 0; Reactive Lymphocytes 0
[2017-07-17 15:46] LABS: Albumin 2.9 g/dL (3.4-5.0); Bilirubin, Total 0.6 mg/dL (0.2-1.0); Calcium 9.1 mg/dL (8.5-10.1); Potassium 3.6 mmol/L (3.5-5.1); Total Protein 6.7 g/dL (6.4-8.2)
[2017-07-17 16:56] LABS: Eosinophils % (manual) 7 (0-7); Lymphocytes % (manual) 48 (10.0-50.0); Metamyelocytes % 1; Monocytes % (manual) 13 (0-12); Myelocytes % 1
== END | disposition home or self-care (01) ==
LOC: LAB 14:44
PROVIDERS: ATTEND Internal Medicine
DX: C34.12 Malignant neoplasm of upper lobe, left bronchus or lung (principal)
CPT/HCPCS: 36415; 80053; 83615; 85007; 85027

== ENCOUNTER → 2017-07-24 | Outpatient (CLI) | payer OTHER ==
[2017-07-24 14:06] LABS: Basophils # (auto) 0.1 uL; Basophils % (auto) 0.9 % (0.0-2.0); Eosinophils # (auto) 0.2 uL; Eosinophils % (auto) 3.5 % (0.0-7.0); Hematocrit 30.9 % (41.0-53.0); Hemoglobin 10.1 g/dL (13.5-17.5); Lymphocytes # (auto) 0.4 uL; Lymphocytes % (auto) 7.4 % (10.0-50.0); Mean Corpuscular Hemoglobin 32.7 pg (28.0-32.0); Mean Corpuscular Hgb Conc. 32.7 g/dL (32.0-36.0); Mean Corpuscular Volume 100.3 fL (80.0-100.0); Monocytes # (auto) 1.2 uL; Neutrophils % (auto) 68.2 % (37.0-80.0); Red Blood Cells 3.08 10^6/uL (4.5-5.90); White Blood Cell 5.8 10^3/uL (4.4-10.8)
[2017-07-24 14:10] LABS: Platelet Count (auto) 149 10^3/uL (140-450)
== END | disposition home or self-care (01) ==
LOC: LAB 13:52
PROVIDERS: ATTEND Internal Medicine
DX: C34.12 Malignant neoplasm of upper lobe, left bronchus or lung (principal)
CPT/HCPCS: 36415; 85025

== ENCOUNTER → 2017-07-31 | Outpatient (CLI) | payer OTHER ==
[2017-07-31 12:45] LABS: Basophils # (auto) 0 uL; Basophils % (auto) 1.2 % (0.0-2.0); Eosinophils # (auto) 0.1 uL; Eosinophils % (auto) 2.5 % (0.0-7.0); Hematocrit 29.2 % (41.0-53.0); Hemoglobin 9.5 g/dL (13.5-17.5); Lymphocytes # (auto) 0.3 uL; Lymphocytes % (auto) 10.7 % (10.0-50.0); Mean Corpuscular Hemoglobin 32.5 pg (28.0-32.0); Mean Corpuscular Hgb Conc. 32.6 g/dL (32.0-36.0); Mean Corpuscular Volume 99.8 fL (80.0-100.0); Monocytes # (auto) 0.1 uL; Monocytes % (auto) 4.3 % (0.0-12.0); Neutrophils # (auto) 2.5 uL; Neutrophils % (auto) 81.3 % (37.0-80.0); Platelet Count (auto) 143 10^3/uL (140-450); Red Blood Cells 2.93 10^6/uL (4.5-5.90)
[2017-07-31 12:56] LABS: Red Cell Distribution Width 20.2 % (11.8-14.3)
[2017-07-31 13:23] LABS: Albumin 2.6 g/dL (3.4-5.0); BUN/Creatinine Ratio 11.1; Bilirubin, Total 0.5 mg/dL (0.2-1.0); Calcium 8.7 mg/dL (8.5-10.1); Potassium 3.6 mmol/L (3.5-5.1); Total Protein 6.3 g/dL (6.4-8.2)
== END | disposition home or self-care (01) ==
LOC: LAB 12:29
PROVIDERS: ATTEND Internal Medicine
DX: C34.12 Malignant neoplasm of upper lobe, left bronchus or lung (principal)
CPT/HCPCS: 36415; 80053; 83615; 85025

== ENCOUNTER 2017-08-11 10:02 | Inpatient (IN) | payer OTHER ==
[~2017-08-11] VITALS: Ht 175.3 cm; Wt 107.3 kg
[~2017-08-11 10:02] MED LIST changes: -ASPI81CH43 PO; -TAM04C PO
[2017-08-11] MEDS ORDERED: ALBUTEROL SULF 2.5 MG/0.5ML(0.5%) NEB SOLN NEB ONE (10:45)
[2017-08-11] MEDS ORDERED: IPRATROPIUM BROM 0.5 MG/2.5ML INH SOL NEB ONE (10:45)
[2017-08-11 11:00] LABS: Hematocrit 30.4 % (41.0-53.0); Hemoglobin 9.9 g/dL (13.5-17.5); Mean Corpuscular Hemoglobin 32.8 pg (28.0-32.0); Mean Corpuscular Hgb Conc. 32.6 g/dL (32.0-36.0); Mean Corpuscular Volume 100.6 fL (80.0-100.0); Platelet Count (auto) 258 10^3/uL (140-450); Red Blood Cells 3.02 10^6/uL (4.5-5.90)
[2017-08-11 11:09] LABS: Red Cell Distribution Width 20.1 % (11.8-14.3)
[2017-08-11 11:15] LABS: Basophils % (manual) 0 (0.0-2.0); Blast Cells 0; Metamyelocytes % 0; Myelocytes % 0; Promyelocytes % 0; Reactive Lymphocytes 0
[2017-08-11 11:21] LABS: Alanine Aminotransferase 37 U/L (16-61); Albumin 2.5 g/dL (3.4-5.0); Alkaline Phosphatase 73 U/L (45-117); Anion Gap 7 (5-15); Aspartate Aminotransferase 44 U/L (15-37); Bilirubin, Total 0.5 mg/dL (0.2-1.0); Blood Urea Nitrogen 9 mg/dL (7-18); Calcium 8.5 mg/dL (8.5-10.1); Carbon Dioxide 33 mmol/L (21-32); Chloride 102 mmol/L (98-107); GFR African American 82 mL/min; GFR Non-African American 68 mL/min; Glucose 106 mg/dL (74-106); Potassium 3.7 mmol/L (3.5-5.1); Sodium 142 mmol/L (136-145); Total Protein 6.4 g/dL (6.4-8.2)
[2017-08-11 11:24] LABS: Band Neutrophils % (manual) 2; Eosinophils % (manual) 14 (0-7); Lymphocytes % (manual) 5 (10.0-50.0); Monocytes % (manual) 21 (0-12)
[2017-08-11 11:47] LABS: INR 0.98 (0.9-1.15); Partial Thromboplastin Time 27.6 sec (22.64-33.71); Prothrombin Time 10.7 sec (9.37-12.3)
[2017-08-11] MEDS ORDERED: cefTRIAXone 1GM/10ml IVPUSH 10 ML IV ONE (12:30)
[2017-08-11] MEDS ORDERED: IOHEXOL 350 MG/ML 100ML IJ ONE (13:40)
[2017-08-11] MEDS ORDERED: LACTULOSE 20Gm/30ML SOLN PO PRN (13:45)
[2017-08-11] MEDS ORDERED: ACETAMINOPHEN 500 MG TAB PO PRN (13:45)
[2017-08-11] MEDS ORDERED: HYDROcodone-ACET 5/325MG TAB PO PRN (13:45)
[2017-08-11] MEDS ORDERED: MORPHINE SULFATE 4 MG/ML SYR/VIAL IV PRN ×2 (13:45)
[2017-08-11] MEDS ORDERED: TEMAZEPAM 15 MG CAP PO PRN (13:45)
[2017-08-11] MEDS ORDERED: LORazepam 0.5 MG TAB PO PRN (13:45)
[2017-08-11] MEDS ORDERED: ALBUTEROL SULF 2.5 MG/0.5ML(0.5%) NEB SOLN NEB PRN (13:45)
[2017-08-11] MEDS ORDERED: PROMETHAZINE HCL 25 MG/ML 1ML IV PRN (13:45)
[2017-08-11] MEDS ORDERED: NITROGLYCERIN 0.4 MG SL TAB SL PRN (13:45)
[2017-08-11] MEDS ORDERED: OSELTAMIVIR 75 MG CAP PO ONE (13:45)
[2017-08-11 17:00] VITALS: BP 152/74
[2017-08-11 20:00] VITALS: BP 139/58
[2017-08-11] MEDS: IPRATROPIUM BROM 0.5 MG/2.5ML INH SOL NEB SCH (20:25)
[2017-08-11] MEDS: ALBUTEROL SULF 2.5 MG/0.5ML(0.5%) NEB SOLN NEB SCH (20:25)
[2017-08-11] MEDS: ATORVASTATIN 20 MG TAB PO SCH (21:48)
[2017-08-11 22:00] VITALS: BP 139/58
[2017-08-11] MEDS ORDERED: OSELTAMIVIR 75 MG CAP PO SCH (22:00)
[2017-08-12] MEDS: ALBUTEROL SULF 2.5 MG/0.5ML(0.5%) NEB SOLN NEB SCH ×4 (00:08→19:23)
[2017-08-12] MEDS: IPRATROPIUM BROM 0.5 MG/2.5ML INH SOL NEB SCH ×4 (00:08→19:23)
[2017-08-12 02:38] VITALS: BP 139/58
[2017-08-12 05:25] VITALS: BP 121/79
[2017-08-12 06:13] LABS: Cholesterol 148 mg/dL (< 200); HDL Cholesterol 48 mg/dL (40-59); LDL Cholesterol 90 mg/dL (< 100); Triglycerides 101 mg/dL (< 150)
[2017-08-12 07:51] VITALS: BP 136/67
[2017-08-12] MEDS: cefTRIAXone 1GM/10ml IVPUSH 10 ML IV SCH (10:01)
[2017-08-12] MEDS: ASPirin 81 mg TAB PO SCH (10:01)
[2017-08-12] MEDS: AZITHROMYCIN 500MG/ 250ML 250 ML IV SCH (10:01)
[2017-08-12] MEDS: ENOXAPARIN SOD 40 MG/0.4 ML SYRINGE SC SCH (10:02)
[2017-08-12 12:36] VITALS: BP 139/68
[2017-08-12 16:13] VITALS: BP 110/59
[2017-08-12 20:00] VITALS: BP 139/56
[2017-08-12] MEDS: BOOST PLUS 8 ounce PO SCH (21:11)
[2017-08-12] MEDS: ATORVASTATIN 20 MG TAB PO SCH (21:11)
[2017-08-13] MEDS: ALBUTEROL SULF 2.5 MG/0.5ML(0.5%) NEB SOLN NEB SCH ×4 (00:42→18:35)
[2017-08-13] MEDS: IPRATROPIUM BROM 0.5 MG/2.5ML INH SOL NEB SCH ×4 (00:42→18:36)
[2017-08-13 05:09] VITALS: BP 129/57
[2017-08-13 06:44] LABS: Hematocrit 28.8 % (41.0-53.0); Hemoglobin 9.5 g/dL (13.5-17.5); Mean Corpuscular Hemoglobin 33.4 pg (28.0-32.0); Mean Corpuscular Hgb Conc. 32.9 g/dL (32.0-36.0); Mean Corpuscular Volume 101.5 fL (80.0-100.0); Platelet Count (auto) 267 10^3/uL (140-450); Red Blood Cells 2.84 10^6/uL (4.5-5.90); White Blood Cell 5.8 10^3/uL (4.4-10.8)
[2017-08-13 06:55] LABS: Red Cell Distribution Width 20.2 % (11.8-14.3)
[2017-08-13 06:56] LABS: Band Neutrophils % (manual) 0; Basophils % (manual) 0 (0.0-2.0); Blast Cells 0; Metamyelocytes % 0; Myelocytes % 0; Promyelocytes % 0; Reactive Lymphocytes 0
[2017-08-13 07:26] LABS: Albumin 2.4 g/dL (3.4-5.0); BUN/Creatinine Ratio 7.2; Bilirubin, Total 0.4 mg/dL (0.2-1.0); Calcium 8.5 mg/dL (8.5-10.1); Potassium 3.6 mmol/L (3.5-5.1); Total Protein 6.1 g/dL (6.4-8.2)
[2017-08-13 08:19] LABS: Eosinophils % (manual) 6 (0-7); Lymphocytes % (manual) 5 (10.0-50.0); Monocytes % (manual) 22 (0-12)
[2017-08-13 09:00] VITALS: BP 134/90
[2017-08-13] MEDS: ASPirin 81 mg TAB PO SCH (10:59)
[2017-08-13] MEDS: ENOXAPARIN SOD 40 MG/0.4 ML SYRINGE SC SCH ×2 (11:00→21:25)
[2017-08-13] MEDS: cefTRIAXone 1GM/10ml IVPUSH 10 ML IV SCH (11:01)
[2017-08-13] MEDS: BOOST PLUS 8 ounce PO SCH ×2 (11:01→21:25)
[2017-08-13] MEDS: AZITHROMYCIN 500MG/ 250ML 250 ML IV SCH (11:08)
[2017-08-13] MEDS ORDERED: POTASSIUM CHL 10% (20 MEQ/15ML) 15ml ORAL SOLN PO ONE (12:00)
[2017-08-13] MEDS ORDERED: FUROSEMIDE 40 MG/4 ML VIAL IV ONE (12:00)
[2017-08-13 13:00] VITALS: BP 135/60
[2017-08-13 16:58] VITALS: BP 143/64
[2017-08-13 20:00] VITALS: BP 135/70
[2017-08-13] MEDS: ATORVASTATIN 20 MG TAB PO SCH (21:25)
[2017-08-13] MEDS: MEGESTROL ACET 400MG/10ML ORAL SUSP PO SCH (21:25)
[2017-08-13 22:00] VITALS: BP 135/70
[2017-08-14] VITALS (7 sets, daily range): BP systolic 113–155; BP diastolic 53–77
[2017-08-14 06:04] LABS: Hematocrit 27.9 % (41.0-53.0); Hemoglobin 9.1 g/dL (13.5-17.5); Mean Corpuscular Hemoglobin 32.7 pg (28.0-32.0); Mean Corpuscular Hgb Conc. 32.5 g/dL (32.0-36.0); Mean Corpuscular Volume 100.7 fL (80.0-100.0); Platelet Count (auto) 229 10^3/uL (140-450); Red Blood Cells 2.77 10^6/uL (4.5-5.90); Red Cell Distribution Width 19.6 % (11.8-14.3); White Blood Cell 4.8 10^3/uL (4.4-10.8)
[2017-08-14] MEDS: ALBUTEROL SULF 2.5 MG/0.5ML(0.5%) NEB SOLN NEB SCH ×4 (06:05→19:36)
[2017-08-14] MEDS: IPRATROPIUM BROM 0.5 MG/2.5ML INH SOL NEB SCH ×4 (06:05→19:36)
[2017-08-14 06:08] LABS: Band Neutrophils % (manual) 0; Basophils % (manual) 0 (0.0-2.0); Blast Cells 0; Metamyelocytes % 0; Promyelocytes % 0; Reactive Lymphocytes 0
[2017-08-14 06:37] LABS: Albumin 2.3 g/dL (3.4-5.0); Calcium 8.4 mg/dL (8.5-10.1); Potassium 3.7 mmol/L (3.5-5.1)
[2017-08-14 06:42] LABS: Bilirubin, Total 0.3 mg/dL (0.2-1.0); Total Protein 5.7 g/dL (6.4-8.2)
[2017-08-14 06:46] LABS: Eosinophils % (manual) 7 (0-7); Lymphocytes % (manual) 19 (10.0-50.0); Monocytes % (manual) 22 (0-12); Myelocytes % 1
[2017-08-14 09:01] LABS: BUN/Creatinine Ratio 9.8
[2017-08-14] MEDS: cefTRIAXone 1GM/10ml IVPUSH 10 ML IV SCH (09:54)
[2017-08-14] MEDS: ASPirin 81 mg TAB PO SCH (09:55)
[2017-08-14] MEDS: ENOXAPARIN SOD 40 MG/0.4 ML SYRINGE SC SCH (09:55)
[2017-08-14] MEDS: AZITHROMYCIN 500MG/ 250ML 250 ML IV SCH (09:56)
[2017-08-14] MEDS ORDERED: FUROSEMIDE 40 MG/4 ML VIAL IV SCH (10:00)
[2017-08-14] MEDS ORDERED: POTASSIUM CHL 10% (20 MEQ/15ML) 15ml ORAL SOLN PO SCH (10:00)
[2017-08-14] MEDS ORDERED: LIDOCAINE 2%HCL (LOCAL ANESTH.) INJ 20ML MDV ONE (10:44)
[2017-08-14] MEDS: MEGESTROL ACET 400MG/10ML ORAL SUSP PO SCH ×2 (13:47→22:21)
[2017-08-14] MEDS: BOOST PLUS 8 ounce PO SCH ×2 (13:48→22:21)
[2017-08-14 20:31] LABS: Urine Bacteria NONE SEEN /hpf (None Seen); Urine Blood TRACE /uL (Negative); Urine Mucus FEW (None Seen); Urine Specific Gravity 1.012 (1.001-1.035); Urine WBC 5 /hpf (0 - 3)
[2017-08-14] MEDS: ATORVASTATIN 20 MG TAB PO SCH (22:21)
[2017-08-15] VITALS (7 sets, daily range): BP systolic 124–145; BP diastolic 56–79
[2017-08-15] MEDS: ALBUTEROL SULF 2.5 MG/0.5ML(0.5%) NEB SOLN NEB SCH ×5 (00:28→19:58)
[2017-08-15] MEDS: IPRATROPIUM BROM 0.5 MG/2.5ML INH SOL NEB SCH ×5 (00:28→19:57)
[2017-08-15 05:47] LABS: Hematocrit 26.9 % (41.0-53.0); Mean Corpuscular Hemoglobin 33.4 pg (28.0-32.0); Mean Corpuscular Hgb Conc. 33.3 g/dL (32.0-36.0); Mean Corpuscular Volume 100.1 fL (80.0-100.0); Platelet Count (auto) 235 10^3/uL (140-450); Red Blood Cells 2.69 10^6/uL (4.5-5.90); Red Cell Distribution Width 19.3 % (11.8-14.3); White Blood Cell 4.5 10^3/uL (4.4-10.8)
[2017-08-15 05:56] LABS: INR 1.02 (0.9-1.15); Partial Thromboplastin Time 28.5 sec (22.64-33.71); Prothrombin Time 11.1 sec (9.37-12.3)
[2017-08-15 06:09] LABS: Basophils % (manual) 0 (0.0-2.0); Blast Cells 0; Metamyelocytes % 0; Myelocytes % 0; Promyelocytes % 0; Reactive Lymphocytes 0
[2017-08-15 06:15] LABS: BUN/Creatinine Ratio 11.6; Calcium 8.5 mg/dL (8.5-10.1); Potassium 3.6 mmol/L (3.5-5.1)
[2017-08-15 06:30] LABS: Band Neutrophils % (manual) 1; Eosinophils % (manual) 5 (0-7); Lymphocytes % (manual) 7 (10.0-50.0); Monocytes % (manual) 16 (0-12)
[2017-08-15] MEDS ORDERED: ONDANSETRON HCL 4 MG/2 ML VIAL IV ONE (08:15)
[2017-08-15] MEDS ORDERED: hydrALAZINE HCL 20 MG/ML VL IV PRN (08:15)
[2017-08-15] MEDS ORDERED: MORPHINE SULFATE 4 MG/ML SYR/VIAL IV PRN (08:15)
[2017-08-15] MEDS ORDERED: ePHEDrine SULFATE 50 MG/ML AMP IV PRN (08:15)
[2017-08-15] MEDS ORDERED: ACCU-CHEK COMFORT CURVE STRIP VI ONE (08:15)
[2017-08-15] MEDS ORDERED: LABETALOL HCL 5 MG/ML 4ML SYRINGE IV PRN (08:15)
[2017-08-15] MEDS ORDERED: MIDAZOLAM HCL 1MG/1ML-2 ML VIAL IV PRN (08:15)
[2017-08-15] MEDS ORDERED: KETOROLAC TROMETH 30 MG/ML 1ML VIAL IV ONE (08:15)
[2017-08-15] MEDS ORDERED: ceFAZolin 1GM/50ML 50 ML IV ONE (08:29)
[2017-08-15] MEDS ORDERED: MIDAZOLAM HCL 1MG/1ML-2 ML VIAL ONE (08:49)
[2017-08-15] MEDS ORDERED: fentaNYL CITRATE 100 MCG/2 ML VL ONE (08:49)
[2017-08-15] MEDS ORDERED: PROPOFOL 10 MG/ML 20 ML IV ONE (08:50)
[2017-08-15] MEDS ORDERED: DEXAMETHASONE SOD PHOS 10MG/1ML VIAL INJ ONE (08:50)
[2017-08-15] MEDS: cefTRIAXone 1GM/10ml IVPUSH 10 ML IV SCH (09:00)
[2017-08-15] MEDS ORDERED: HEPARIN 1,000 UNITS/ml 1ML VIAL ONE (09:14)
[2017-08-15] MEDS ORDERED: BUPIVACAINE 0.25% INJ 50ML VIAL ONE (09:14)
[2017-08-15] MEDS ORDERED: LIDOCAINE 1% HCL (LOCAL ANESTH.) INJ 20ML MDV ONE (09:14)
[2017-08-15] MEDS ORDERED: HEPARIN SODIUM (PORCINE) 5000 UNITS/ML 1ML VIAL ONE (09:15)
[2017-08-15] MEDS ORDERED: ceFAZolin 1GM VL ONE (09:15)
[2017-08-15] MEDS ORDERED: IOHEXOL 350 MG/ML 100ML IJ ONE (09:52)
[2017-08-15] MEDS: ENOXAPARIN SOD 40 MG/0.4 ML SYRINGE SC SCH (10:00)
[2017-08-15] MEDS ORDERED: MORPHINE SULFATE 4 MG/ML SYR/VIAL IV ONE (10:00)
[2017-08-15] MEDS: BOOST PLUS 8 ounce PO SCH ×2 (10:00→22:00)
[2017-08-15] MEDS: MEGESTROL ACET 400MG/10ML ORAL SUSP PO SCH ×2 (11:30→21:48)
[2017-08-15] MEDS: ASPirin 81 mg TAB PO SCH (11:30)
[2017-08-15] MEDS: AZITHROMYCIN 250 MG TAB PO SCH (11:30)
[2017-08-15] MEDS: ATORVASTATIN 20 MG TAB PO SCH (19:42)
[2017-08-15] MEDS: FUROSEMIDE 40 MG/4 ML VIAL IV SCH (22:00)
[2017-08-15] MEDS: POTASSIUM CHL 10% (20 MEQ/15ML) 15ml ORAL SOLN PO SCH (22:00)
[2017-08-16 05:00] VITALS: BP 138/58
[2017-08-16 06:09] LABS: BUN/Creatinine Ratio 15.8; Calcium 8.5 mg/dL (8.5-10.1); Potassium 4.2 mmol/L (3.5-5.1)
[2017-08-16] MEDS: ALBUTEROL SULF 2.5 MG/0.5ML(0.5%) NEB SOLN NEB SCH ×2 (07:25→13:09)
[2017-08-16] MEDS: IPRATROPIUM BROM 0.5 MG/2.5ML INH SOL NEB SCH ×2 (07:25→13:08)
[2017-08-16 08:00] VITALS: BP 149/69
[2017-08-16] MEDS ORDERED: IOHEXOL 350 MG/ML 100ML IJ ONE (08:33)
[2017-08-16 09:00] VITALS: BP 149/65
[2017-08-16] MEDS: BOOST PLUS 8 ounce PO SCH (10:00)
[2017-08-16] MEDS: MEGESTROL ACET 400MG/10ML ORAL SUSP PO SCH (10:22)
[2017-08-16] MEDS: ASPirin 81 mg TAB PO SCH (10:22)
[2017-08-16] MEDS: AZITHROMYCIN 250 MG TAB PO SCH (10:22)
[2017-08-16] MEDS: cefTRIAXone 1GM/10ml IVPUSH 10 ML IV SCH (10:23)
[2017-08-16] MEDS: ENOXAPARIN SOD 40 MG/0.4 ML SYRINGE SC SCH (10:29)
[2017-08-16] MEDS: FUROSEMIDE 40 MG/4 ML VIAL IV SCH (10:29)
[2017-08-16] MEDS: POTASSIUM CHL 10% (20 MEQ/15ML) 15ml ORAL SOLN PO SCH (10:33)
[2017-08-16] MEDS ORDERED: ASPI81CH43 PO (11:46)
[2017-08-16 13:00] VITALS: BP 140/75
[2017-08-16] MEDS ORDERED: TAM04C PO (13:03)
[2017-08-16 14:22] VITALS: BP 140/75
[2017-08-16 17:03] VITALS: BP 135/70
[2017-08-16] MEDS ORDERED: TAMSULOSIN HYDROCHLORIDE 0.4 MG CAP PO SCH (18:00)
== END 2017-08-16 17:45 | disposition home or self-care (01) | DRG 193 ==
LOC: ER 10:02 → TELE 10:03 → TELE-WESTW 15:33
PROVIDERS: ADMIT Internal Medicine; ATTEND Internal Medicine
PROC: 5A09357 Assistance with Respiratory Ventilation, Less than 24 Consecutive Hours, Continuous Positive Airway Pressure (ICD-10-PCS; 2017-08-11)
PROC: 5A09357 Assistance with Respiratory Ventilation, Less than 24 Consecutive Hours, Continuous Positive Airway Pressure (ICD-10-PCS; 2017-08-12)
PROC: 5A09357 Assistance with Respiratory Ventilation, Less than 24 Consecutive Hours, Continuous Positive Airway Pressure (ICD-10-PCS; 2017-08-13)
PROC: 02HV33Z Insertion of Infusion Device into Superior Vena Cava, Percutaneous Approach (ICD-10-PCS; 2017-08-15)
PROC: 0JH60WZ Insertion of Totally Implantable Vascular Access Device into Chest Subcutaneous Tissue and Fascia, Open Approach (ICD-10-PCS; principal; 2017-08-15 09:25)
DX: J18.1 Lobar pneumonia, unspecified organism (principal); J96.20 Acute and chronic respiratory failure, unspecified whether with hypoxia or hypercapnia; E43 Unspecified severe protein-calorie malnutrition; I50.33 Acute on chronic diastolic (congestive) heart failure; G62.9 Polyneuropathy, unspecified; C34.12 Malignant neoplasm of upper lobe, left bronchus or lung; I48.91 Unspecified atrial fibrillation; Z99.81 Dependence on supplemental oxygen; D64.9 Anemia, unspecified; J44.0 Chronic obstructive pulmonary disease with (acute) lower respiratory infection; J44.1 Chronic obstructive pulmonary disease with (acute) exacerbation; I11.0 Hypertensive heart disease with heart failure; E78.5 Hyperlipidemia, unspecified; I73.9 Peripheral vascular disease, unspecified; I87.2 Venous insufficiency (chronic) (peripheral); K43.9 Ventral hernia without obstruction or gangrene; N40.0 Benign prostatic hyperplasia without lower urinary tract symptoms; E78.00 Pure hypercholesterolemia, unspecified; Z68.34 Body mass index [BMI] 34.0-34.9, adult; Z88.6 Allergy status to analgesic agent; Z92.21 Personal history of antineoplastic chemotherapy; Z79.899 Other long term (current) drug therapy
CPT/HCPCS: 36415; 71045; 71046; 71275; 75635; 76604; 80048; 80053; 80061; 81001; 82550; 83605; 83880; 84443; 84484; 85007; 85027; 85379; 85610; 85652; 85730; 86141; 87040; 87804; 93005; 93306; 93970; 94640; 94660; 96372; 96374; 96376; C1788; J0690; J1100; J2001; J2250; J2704; J3490

== ENCOUNTER → 2017-08-29 | Outpatient (CLI) | payer OTHER ==
[~2017-08-29] MED LIST changes: +ASPI81CH43 PO; +TAM04C PO
[2017-08-29 14:26] LABS: Hemoglobin 10.7 g/dL (13.5-17.5); Red Cell Distribution Width 18.5 % (11.8-14.3); White Blood Cell 7.3 10^3/uL (4.4-10.8)
[2017-08-29 14:30] LABS: Basophils # (auto) 0.1 uL; Basophils % (auto) 0.7 % (0.0-2.0); Eosinophils # (auto) 0.2 uL; Eosinophils % (auto) 2.9 % (0.0-7.0); Hematocrit 32.8 % (41.0-53.0); Lymphocytes # (auto) 0.7 uL; Lymphocytes % (auto) 9.8 % (10.0-50.0); Mean Corpuscular Hemoglobin 32.3 pg (28.0-32.0); Mean Corpuscular Hgb Conc. 32.5 g/dL (32.0-36.0); Mean Corpuscular Volume 99.4 fL (80.0-100.0); Monocytes # (auto) 0.9 uL; Monocytes % (auto) 12.8 % (0.0-12.0); Neutrophils # (auto) 5.4 uL; Neutrophils % (auto) 73.8 % (37.0-80.0); Platelet Count (auto) 205 10^3/uL (140-450)
[2017-08-29 15:13] LABS: Albumin 2.7 g/dL (3.4-5.0); Bilirubin, Total 0.3 mg/dL (0.2-1.0); Calcium 8.5 mg/dL (8.5-10.1); Potassium 3.5 mmol/L (3.5-5.1); Total Protein 6.7 g/dL (6.4-8.2)
== END | disposition home or self-care (01) ==
LOC: LAB 14:14
PROVIDERS: ATTEND Internal Medicine
DX: C34.12 Malignant neoplasm of upper lobe, left bronchus or lung (principal)
CPT/HCPCS: 36415; 80053; 83615; 85025

== ENCOUNTER → 2017-09-08 | Outpatient (CLI) | payer OTHER ==
[2017-09-08 14:23] LABS: Basophils # (auto) 0 uL; Basophils % (auto) 0.4 % (0.0-2.0); Eosinophils # (auto) 0.2 uL; Eosinophils % (auto) 3.6 % (0.0-7.0); Hematocrit 34.1 % (41.0-53.0); Hemoglobin 11.1 g/dL (13.5-17.5); Lymphocytes # (auto) 0.6 uL; Lymphocytes % (auto) 12.5 % (10.0-50.0); Mean Corpuscular Hemoglobin 32.1 pg (28.0-32.0); Mean Corpuscular Hgb Conc. 32.5 g/dL (32.0-36.0); Mean Corpuscular Volume 98.9 fL (80.0-100.0); Monocytes # (auto) 0.6 uL; Monocytes % (auto) 13.7 % (0.0-12.0); Neutrophils # (auto) 3.3 uL; Neutrophils % (auto) 69.8 % (37.0-80.0); Platelet Count (auto) 81 10^3/uL (140-450); Red Blood Cells 3.45 10^6/uL (4.5-5.90); Red Cell Distribution Width 17.5 % (11.8-14.3); White Blood Cell 4.7 10^3/uL (4.4-10.8)
[2017-09-08 14:57] LABS: Albumin 2.6 g/dL (3.4-5.0); BUN/Creatinine Ratio 10.2; Bilirubin, Total 0.4 mg/dL (0.2-1.0); Calcium 8.9 mg/dL (8.5-10.1); Potassium 3.7 mmol/L (3.5-5.1); Total Protein 6.9 g/dL (6.4-8.2)
== END | disposition home or self-care (01) ==
LOC: LAB 14:07
PROVIDERS: ATTEND Internal Medicine
DX: C34.12 Malignant neoplasm of upper lobe, left bronchus or lung (principal)
CPT/HCPCS: 36415; 80053; 83615; 85025

== ENCOUNTER → 2017-09-18 | Outpatient (CLI) | payer OTHER ==
[2017-09-18 14:19] LABS: Hematocrit 34.4 % (41.0-53.0); Mean Corpuscular Hemoglobin 31.4 pg (28.0-32.0); Mean Corpuscular Hgb Conc. 31.8 g/dL (32.0-36.0); Mean Corpuscular Volume 98.7 fL (80.0-100.0); Platelet Count (auto) 228 10^3/uL (140-450); Red Blood Cells 3.49 10^6/uL (4.5-5.90); Red Cell Distribution Width 17.4 % (11.8-14.3); White Blood Cell 3.9 10^3/uL (4.4-10.8)
[2017-09-18 14:33] LABS: Albumin 2.5 g/dL (3.4-5.0); BUN/Creatinine Ratio 13.7; Bilirubin, Total 0.3 mg/dL (0.2-1.0); Calcium 8.6 mg/dL (8.5-10.1); Potassium 3.6 mmol/L (3.5-5.1); Total Protein 6.4 g/dL (6.4-8.2)
[2017-09-18 14:39] LABS: Band Neutrophils % (manual) 0; Basophils % (manual) 0 (0.0-2.0); Blast Cells 0; Metamyelocytes % 0; Myelocytes % 0; Promyelocytes % 0; Reactive Lymphocytes 0
[2017-09-18 15:06] LABS: Eosinophils % (manual) 3 (0-7); Lymphocytes % (manual) 12 (10.0-50.0); Monocytes % (manual) 20 (0-12)
== END | disposition home or self-care (01) ==
LOC: LAB 13:58
PROVIDERS: ATTEND Internal Medicine
DX: C34.10 Malignant neoplasm of upper lobe, unspecified bronchus or lung (principal)
CPT/HCPCS: 36415; 80053; 83615; 85007; 85027

== ENCOUNTER → 2017-09-25 | Outpatient (CLI) | payer OTHER ==
[2017-09-25 14:23] LABS: Basophils # (auto) 0 uL; Basophils % (auto) 1.3 % (0.0-2.0); Eosinophils # (auto) 0.1 uL; Eosinophils % (auto) 3.4 % (0.0-7.0); Hematocrit 30.6 % (41.0-53.0); Lymphocytes # (auto) 0.4 uL; Lymphocytes % (auto) 17.2 % (10.0-50.0); Mean Corpuscular Hemoglobin 31.9 pg (28.0-32.0); Mean Corpuscular Hgb Conc. 32.5 g/dL (32.0-36.0); Monocytes # (auto) 0.2 uL; Monocytes % (auto) 7.9 % (0.0-12.0); Neutrophils # (auto) 1.5 uL; Neutrophils % (auto) 70.2 % (37.0-80.0); Platelet Count (auto) 119 10^3/uL (140-450); Red Blood Cells 3.13 10^6/uL (4.5-5.90); Red Cell Distribution Width 16.8 % (11.8-14.3); White Blood Cell 2.1 10^3/uL (4.4-10.8)
== END | disposition home or self-care (01) ==
LOC: LAB 13:52
PROVIDERS: ATTEND Internal Medicine
DX: C34.12 Malignant neoplasm of upper lobe, left bronchus or lung (principal); E78.00 Pure hypercholesterolemia, unspecified
CPT/HCPCS: 36415; 85025

== ENCOUNTER → 2017-10-09 | Outpatient (CLI) | payer OTHER ==
[2017-10-09 13:47] LABS: Hematocrit 30.6 % (41.0-53.0); Hemoglobin 9.8 g/dL (13.5-17.5); Mean Corpuscular Volume 100.2 fL (80.0-100.0); Platelet Count (auto) 147 10^3/uL (140-450); Red Blood Cells 3.06 10^6/uL (4.5-5.90); Red Cell Distribution Width 18.5 % (11.8-14.3); White Blood Cell 3.2 10^3/uL (4.4-10.8)
[2017-10-09 13:53] LABS: Band Neutrophils % (manual) 0; Basophils % (manual) 0 (0.0-2.0); Blast Cells 0; Metamyelocytes % 0; Myelocytes % 0; Promyelocytes % 0; Reactive Lymphocytes 0
[2017-10-09 14:13] LABS: Albumin 2.2 g/dL (3.4-5.0); BUN/Creatinine Ratio 12.2; Bilirubin, Total 0.4 mg/dL (0.2-1.0); Calcium 8.5 mg/dL (8.5-10.1); Potassium 3.9 mmol/L (3.5-5.1); Total Protein 5.8 g/dL (6.4-8.2)
[2017-10-09 15:36] LABS: Eosinophils % (manual) 1 (0-7); Lymphocytes % (manual) 25 (10.0-50.0); Monocytes % (manual) 11 (0-12)
== END | disposition home or self-care (01) ==
LOC: LAB 13:26
PROVIDERS: ATTEND Internal Medicine
DX: C34.12 Malignant neoplasm of upper lobe, left bronchus or lung (principal); E78.5 Hyperlipidemia, unspecified; E78.00 Pure hypercholesterolemia, unspecified; J44.9 Chronic obstructive pulmonary disease, unspecified; Z79.899 Other long term (current) drug therapy
CPT/HCPCS: 36415; 80053; 83615; 85007; 85027

== ENCOUNTER → 2017-10-16 | Outpatient (CLI) | payer OTHER ==
[2017-10-16 14:43] LABS: Hematocrit 28.1 % (41.0-53.0); Hemoglobin 9.3 g/dL (13.5-17.5); Mean Corpuscular Hgb Conc. 33.2 g/dL (32.0-36.0); Mean Corpuscular Volume 99.3 fL (80.0-100.0); Platelet Count (auto) 169 10^3/uL (140-450); Red Blood Cells 2.83 10^6/uL (4.5-5.90); Red Cell Distribution Width 18.4 % (11.8-14.3)
[2017-10-16 14:53] LABS: Albumin 2.2 g/dL (3.4-5.0); BUN/Creatinine Ratio 15.1; Bilirubin, Total 0.3 mg/dL (0.2-1.0); Calcium 8.4 mg/dL (8.5-10.1); Potassium 3.5 mmol/L (3.5-5.1); Total Protein 5.7 g/dL (6.4-8.2)
[2017-10-16 14:59] LABS: White Blood Cell 0.9 10^3/uL (4.4-10.8)
[2017-10-16 15:00] LABS: Band Neutrophils % (manual) 0; Basophils % (manual) 0 (0.0-2.0); Blast Cells 0; Metamyelocytes % 0; Myelocytes % 0; Promyelocytes % 0; Reactive Lymphocytes 0
[2017-10-16 17:11] LABS: Eosinophils % (manual) 4 (0-7); Lymphocytes % (manual) 44 (10.0-50.0); Monocytes % (manual) 10 (0-12)
== END | disposition home or self-care (01) ==
LOC: LAB 14:09
PROVIDERS: ATTEND Internal Medicine
DX: C34.12 Malignant neoplasm of upper lobe, left bronchus or lung (principal); E78.00 Pure hypercholesterolemia, unspecified; J44.9 Chronic obstructive pulmonary disease, unspecified; I10 Essential (primary) hypertension; E78.5 Hyperlipidemia, unspecified; Z79.899 Other long term (current) drug therapy; Z85.118 Personal history of other malignant neoplasm of bronchus and lung
CPT/HCPCS: 36415; 80053; 83615; 85007; 85027

== ENCOUNTER 2017-10-23 15:08 | Inpatient (IN) | payer OTHER ==
[~2017-10-23] VITALS: Ht 175.3 cm; Wt 101.1 kg
[2017-10-23 16:52] LABS: Hematocrit 32.4 % (41.0-53.0); Hemoglobin 10.5 g/dL (13.5-17.5); Mean Corpuscular Hemoglobin 32.3 pg (28.0-32.0); Mean Corpuscular Hgb Conc. 32.3 g/dL (32.0-36.0); Mean Corpuscular Volume 99.9 fL (80.0-100.0); Platelet Count (auto) 120 10^3/uL (140-450); Red Blood Cells 3.24 10^6/uL (4.5-5.90); Red Cell Distribution Width 19.9 % (11.8-14.3); White Blood Cell 4.9 10^3/uL (4.4-10.8)
[2017-10-23 17:11] LABS: Alanine Aminotransferase 33 U/L (16-61); Albumin 2.5 g/dL (3.4-5.0); Alkaline Phosphatase 77 U/L (45-117); Anion Gap 8 (5-15); Aspartate Aminotransferase 35 U/L (15-37); BUN/Creatinine Ratio 8.8; Bilirubin, Total 0.3 mg/dL (0.2-1.0); Blood Urea Nitrogen 12 mg/dL (7-18); Calcium 8.6 mg/dL (8.5-10.1); Carbon Dioxide 29 mmol/L (21-32); Chloride 101 mmol/L (98-107); GFR African American 66 mL/min; GFR Non-African American 54 mL/min; Glucose 77 mg/dL (74-106); Potassium 3.9 mmol/L (3.5-5.1); Sodium 138 mmol/L (136-145); Total Protein 6.3 g/dL (6.4-8.2)
[2017-10-23 17:15] LABS: Band Neutrophils % (manual) 0; Basophils % (manual) 0 (0.0-2.0); Blast Cells 0; Promyelocytes % 0; Reactive Lymphocytes 0
[2017-10-23 17:16] LABS: INR 0.98 (0.9-1.15); Partial Thromboplastin Time 26.4 sec (22.64-33.71); Prothrombin Time 10.7 sec (9.37-12.3)
[2017-10-23 17:19] LABS: Urine Bacteria FEW /hpf (None Seen); Urine Blood TRACE /uL (Negative); Urine Hyaline Cast FEW /lpf (0 - 2); Urine Mucus FEW (None Seen); Urine Specific Gravity 1.009 (1.001-1.035); Urine WBC <1 /hpf (0 - 3)
[2017-10-23 17:46] LABS: Eosinophils % (manual) 3 (0-7); Lymphocytes % (manual) 16 (10.0-50.0); Metamyelocytes % 1; Monocytes % (manual) 14 (0-12); Myelocytes % 1
[2017-10-23] MEDS ORDERED: NITROGLYCERIN 0.4 MG SL TAB SL PRN (18:15)
[2017-10-23] MEDS ORDERED: HYDROcodone-ACET 5/325MG TAB PO PRN (18:15)
[2017-10-23] MEDS ORDERED: PROMETHAZINE HCL 25 MG/ML 1ML IV PRN (18:15)
[2017-10-23] MEDS ORDERED: LACTULOSE 20Gm/30ML SOLN PO PRN (18:15)
[2017-10-23] MEDS ORDERED: ALBUTEROL SULF 2.5 MG/0.5ML(0.5%) NEB SOLN NEB PRN (18:15)
[2017-10-23] MEDS ORDERED: LORazepam 0.5 MG TAB PO PRN (18:15)
[2017-10-23] MEDS ORDERED: TEMAZEPAM 15 MG CAP PO PRN (18:15)
[2017-10-23] MEDS ORDERED: MORPHINE SULFATE 4 MG/ML SYR/VIAL IV PRN ×2 (18:15)
[2017-10-23] MEDS ORDERED: ACETAMINOPHEN 500 MG TAB PO PRN (18:15)
[2017-10-23] MEDS: methylPREDNISolone SOD SUCC 40 MG/ML VL IV SCH (19:07)
[2017-10-23] MEDS ORDERED: FUROSEMIDE 40 MG/4 ML VIAL IV ONE (19:45)
[2017-10-23] MEDS ORDERED: POTASSIUM CHL 20 Meq TABLET PO ONE (19:45)
[2017-10-23 20:20] VITALS: BP 163/84
[2017-10-23 20:30] VITALS: BP 163/84
[2017-10-23] MEDS: ATORVASTATIN 20 MG TAB PO SCH (22:00)
[2017-10-23] MEDS: POTASSIUM CHL 20 Meq TABLET PO SCH (22:12)
[2017-10-23] MEDS: CARVEDILOL 3.125 MG TAB PO SCH (22:13)
[2017-10-23] MEDS: FUROSEMIDE 40 MG/4 ML VIAL IV SCH (22:14)
[2017-10-23] MEDS: IPRATROPIUM BROM 0.5 MG/2.5ML INH SOL NEB SCH (22:47)
[2017-10-23] MEDS: ALBUTEROL SULF 2.5 MG/0.5ML(0.5%) NEB SOLN NEB SCH (22:47)
[2017-10-23 23:33] VITALS: BP 152/60
[2017-10-23 23:35] VITALS: BP 152/60
[2017-10-24 05:49] VITALS: BP 128/58
[2017-10-24] MEDS: FUROSEMIDE 40 MG/4 ML VIAL IV SCH ×2 (06:03→14:39)
[2017-10-24] MEDS: IPRATROPIUM BROM 0.5 MG/2.5ML INH SOL NEB SCH ×3 (06:04→19:38)
[2017-10-24] MEDS: ALBUTEROL SULF 2.5 MG/0.5ML(0.5%) NEB SOLN NEB SCH ×3 (06:04→19:38)
[2017-10-24] MEDS: methylPREDNISolone SOD SUCC 40 MG/ML VL IV SCH ×2 (06:04→17:05)
[2017-10-24 07:22] LABS: Basophils # (auto) 0 uL; Basophils % (auto) 0.4 % (0.0-2.0); Eosinophils # (auto) 0 uL; Hematocrit 31.6 % (41.0-53.0); Hemoglobin 10.4 g/dL (13.5-17.5); Lymphocytes # (auto) 0.3 uL; Lymphocytes % (auto) 5.5 % (10.0-50.0); Mean Corpuscular Hemoglobin 32.9 pg (28.0-32.0); Mean Corpuscular Hgb Conc. 32.9 g/dL (32.0-36.0); Mean Corpuscular Volume 99.9 fL (80.0-100.0); Monocytes # (auto) 0.6 uL; Monocytes % (auto) 10.5 % (0.0-12.0); Neutrophils # (auto) 4.6 uL; Neutrophils % (auto) 83.6 % (37.0-80.0); Platelet Count (auto) 134 10^3/uL (140-450); Red Blood Cells 3.16 10^6/uL (4.5-5.90); Red Cell Distribution Width 19.1 % (11.8-14.3); White Blood Cell 5.5 10^3/uL (4.4-10.8)
[2017-10-24 07:25] LABS: Albumin 2.4 g/dL (3.4-5.0); BUN/Creatinine Ratio 10.7; Bilirubin, Total 0.3 mg/dL (0.2-1.0); Total Protein 5.8 g/dL (6.4-8.2)
[2017-10-24 07:33] LABS: Potassium 5.4 mmol/L (3.5-5.1)
[2017-10-24 09:00] VITALS: BP 139/65
[2017-10-24] MEDS ORDERED: cefTRIAXone 1GM/10ml IVPUSH 10 ML IV SCH (09:00)
[2017-10-24] MEDS: AZITHROMYCIN 500MG/ 250ML 250 ML IV SCH (09:12)
[2017-10-24] MEDS: PANTOPRAZOLE 40 MG TAB PO SCH (09:13)
[2017-10-24] MEDS: ENOXAPARIN SOD 40 MG/0.4 ML SYRINGE SC SCH (09:13)
[2017-10-24] MEDS: POTASSIUM CHL 20 Meq TABLET PO SCH (09:13)
[2017-10-24] MEDS: TAMSULOSIN HYDROCHLORIDE 0.4 MG CAP PO SCH (09:13)
[2017-10-24] MEDS: CARVEDILOL 3.125 MG TAB PO SCH ×2 (09:14→21:38)
[2017-10-24] MEDS: ALLOPURINOL 100 MG TAB PO SCH (09:15)
[2017-10-24] MEDS ORDERED: methylPREDNISolone SOD SUCC 125 MG/2 ML VL ONE (09:31)
[2017-10-24] MEDS ORDERED: ENALAPRIL MALEATE 2.5 MG TAB PO SCH (10:00)
[2017-10-24] MEDS ORDERED: NITROGLYCERIN 0.2MG/HR TOPICAL PATCH TD SCH (10:00)
[2017-10-24 13:00] VITALS: BP 125/66
[2017-10-24 16:47] VITALS: BP 109/48
[2017-10-24] MEDS: LEVOFLOXACIN 500MG 100 ML IV SCH (17:05)
[2017-10-24] MEDS: ATORVASTATIN 20 MG TAB PO SCH (21:38)
[2017-10-24 23:30] VITALS: BP 119/55
[2017-10-25] MEDS: IPRATROPIUM BROM 0.5 MG/2.5ML INH SOL NEB SCH ×4 (00:13→18:40)
[2017-10-25] MEDS: ALBUTEROL SULF 2.5 MG/0.5ML(0.5%) NEB SOLN NEB SCH ×4 (00:13→18:40)
[2017-10-25 05:34] VITALS: BP 121/58
[2017-10-25] MEDS: methylPREDNISolone SOD SUCC 40 MG/ML VL IV SCH (05:57)
[2017-10-25 07:41] LABS: Basophils # (auto) 0 uL; Basophils % (auto) 0.1 % (0.0-2.0); Eosinophils # (auto) 0 uL; Hematocrit 30.1 % (41.0-53.0); Hemoglobin 9.9 g/dL (13.5-17.5); Lymphocytes # (auto) 0.4 uL; Lymphocytes % (auto) 3.3 % (10.0-50.0); Mean Corpuscular Hemoglobin 32.8 pg (28.0-32.0); Mean Corpuscular Hgb Conc. 32.9 g/dL (32.0-36.0); Mean Corpuscular Volume 99.7 fL (80.0-100.0); Monocytes # (auto) 1.3 uL; Monocytes % (auto) 11.4 % (0.0-12.0); Neutrophils # (auto) 9.9 uL; Neutrophils % (auto) 85.2 % (37.0-80.0); Platelet Count (auto) 186 10^3/uL (140-450); Red Blood Cells 3.02 10^6/uL (4.5-5.90); Red Cell Distribution Width 19.6 % (11.8-14.3); White Blood Cell 11.6 10^3/uL (4.4-10.8)
[2017-10-25 08:00] VITALS: BP 110/68
[2017-10-25 08:02] LABS: BUN/Creatinine Ratio 16.6; Calcium 8.8 mg/dL (8.5-10.1); Magnesium 2.6 mg/dL (1.6-2.6); Potassium 5.1 mmol/L (3.5-5.1)
[2017-10-25 09:00] VITALS: BP 110/68
[2017-10-25] MEDS: TAMSULOSIN HYDROCHLORIDE 0.4 MG CAP PO SCH (09:24)
[2017-10-25] MEDS: CARVEDILOL 3.125 MG TAB PO SCH ×2 (09:25→21:59)
[2017-10-25] MEDS: FUROSEMIDE 40 MG TAB PO SCH (09:26)
[2017-10-25] MEDS: PANTOPRAZOLE 40 MG TAB PO SCH (09:26)
[2017-10-25] MEDS: ALLOPURINOL 100 MG TAB PO SCH (09:26)
[2017-10-25] MEDS: ENOXAPARIN SOD 40 MG/0.4 ML SYRINGE SC SCH (09:27)
[2017-10-25] MEDS: LEVOFLOXACIN 500MG 100 ML IV SCH (09:27)
[2017-10-25] MEDS ORDERED: LIDOCAINE 2% (LOCAL ANESTH.) PF 5ml SDV ONE (09:56)
[2017-10-25] MEDS: AZITHROMYCIN 500MG/ 250ML 250 ML IV SCH (11:00)
[2017-10-25 13:00] VITALS: BP 112/70
[2017-10-25 17:00] VITALS: BP 134/70
[2017-10-25] MEDS: ATORVASTATIN 20 MG TAB PO SCH (21:58)
[2017-10-25 22:00] VITALS: BP 141/72
[2017-10-26] VITALS (8 sets, daily range): BP systolic 132–186; BP diastolic 51–72
[2017-10-26] MEDS: IPRATROPIUM BROM 0.5 MG/2.5ML INH SOL NEB SCH ×4 (00:22→19:03)
[2017-10-26] MEDS: ALBUTEROL SULF 2.5 MG/0.5ML(0.5%) NEB SOLN NEB SCH ×4 (00:23→19:03)
[2017-10-26 06:37] LABS: Basophils # (auto) 0 uL; Eosinophils # (auto) 0 uL; Eosinophils % (auto) 0.1 % (0.0-7.0); Hematocrit 31.3 % (41.0-53.0); Hemoglobin 10.2 g/dL (13.5-17.5); Lymphocytes # (auto) 0.5 uL; Lymphocytes % (auto) 4.3 % (10.0-50.0); Mean Corpuscular Hemoglobin 32.8 pg (28.0-32.0); Mean Corpuscular Hgb Conc. 32.7 g/dL (32.0-36.0); Mean Corpuscular Volume 100.2 fL (80.0-100.0); Monocytes # (auto) 2.2 uL; Monocytes % (auto) 17.8 % (0.0-12.0); Neutrophils # (auto) 9.8 uL; Neutrophils % (auto) 77.8 % (37.0-80.0); Platelet Count (auto) 226 10^3/uL (140-450); Red Blood Cells 3.12 10^6/uL (4.5-5.90); White Blood Cell 12.5 10^3/uL (4.4-10.8)
[2017-10-26 06:51] LABS: BUN/Creatinine Ratio 22.8; Calcium 8.7 mg/dL (8.5-10.1); Potassium 4.8 mmol/L (3.5-5.1)
[2017-10-26 06:52] LABS: Red Cell Distribution Width 20.1 % (11.8-14.3)
[2017-10-26] MEDS ORDERED: methylPREDNISolone SOD SUCC 40 MG/ML VL IV SCH (10:00)
[2017-10-26] MEDS: CARVEDILOL 3.125 MG TAB PO SCH ×2 (10:22→21:40)
[2017-10-26] MEDS: FUROSEMIDE 40 MG TAB PO SCH (10:23)
[2017-10-26] MEDS: ALLOPURINOL 100 MG TAB PO SCH (10:23)
[2017-10-26] MEDS: ENOXAPARIN SOD 40 MG/0.4 ML SYRINGE SC SCH (10:23)
[2017-10-26] MEDS: PANTOPRAZOLE 40 MG TAB PO SCH (10:23)
[2017-10-26] MEDS: LEVOFLOXACIN 500MG 100 ML IV SCH (10:24)
[2017-10-26] MEDS: TAMSULOSIN HYDROCHLORIDE 0.4 MG CAP PO SCH (10:34)
[2017-10-26] MEDS: ATORVASTATIN 20 MG TAB PO SCH (21:40)
[2017-10-27] MEDS: ALBUTEROL SULF 2.5 MG/0.5ML(0.5%) NEB SOLN NEB SCH ×5 (01:03→22:52)
[2017-10-27] MEDS: IPRATROPIUM BROM 0.5 MG/2.5ML INH SOL NEB SCH ×5 (01:03→22:52)
[2017-10-27 05:00] VITALS: BP 110/59
[2017-10-27 06:31] LABS: Basophils # (auto) 0 uL; Basophils % (auto) 0.1 % (0.0-2.0); Eosinophils # (auto) 0 uL; Hematocrit 26.9 % (41.0-53.0); Hemoglobin 8.9 g/dL (13.5-17.5); Lymphocytes # (auto) 0.4 uL; Lymphocytes % (auto) 4.2 % (10.0-50.0); Mean Corpuscular Hemoglobin 33.2 pg (28.0-32.0); Mean Corpuscular Hgb Conc. 33.1 g/dL (32.0-36.0); Mean Corpuscular Volume 100.2 fL (80.0-100.0); Monocytes # (auto) 1.5 uL; Monocytes % (auto) 17.1 % (0.0-12.0); Neutrophils % (auto) 78.6 % (37.0-80.0); Platelet Count (auto) 166 10^3/uL (140-450); Red Blood Cells 2.68 10^6/uL (4.5-5.90); White Blood Cell 8.9 10^3/uL (4.4-10.8)
[2017-10-27 06:33] LABS: Red Cell Distribution Width 20.1 % (11.8-14.3)
[2017-10-27 06:58] LABS: BUN/Creatinine Ratio 26.1; Calcium 8.2 mg/dL (8.5-10.1); Potassium 4.4 mmol/L (3.5-5.1)
[2017-10-27 08:00] VITALS: BP 107/37
[2017-10-27 09:00] VITALS: BP 107/37
[2017-10-27] MEDS: CARVEDILOL 3.125 MG TAB PO SCH ×2 (10:00→21:45)
[2017-10-27] MEDS: TAMSULOSIN HYDROCHLORIDE 0.4 MG CAP PO SCH (10:31)
[2017-10-27] MEDS: ALLOPURINOL 100 MG TAB PO SCH (10:31)
[2017-10-27] MEDS: FUROSEMIDE 40 MG TAB PO SCH (10:32)
[2017-10-27] MEDS: predniSONE 20 MG TAB PO SCH (10:32)
[2017-10-27] MEDS: PANTOPRAZOLE 40 MG TAB PO SCH (10:33)
[2017-10-27] MEDS: ENOXAPARIN SOD 40 MG/0.4 ML SYRINGE SC SCH (10:38)
[2017-10-27] MEDS: LEVOFLOXACIN 500MG 100 ML IV SCH (10:39)
[2017-10-27 13:00] VITALS: BP 108/80
[2017-10-27 17:00] VITALS: BP 119/54
[2017-10-27 18:48] LABS: Urine Bacteria NONE SEEN /hpf (None Seen); Urine Blood 2+ /uL (Negative); Urine Specific Gravity 1.008 (1.001-1.035); Urine WBC 5 /hpf (0 - 3)
[2017-10-27] MEDS: ATORVASTATIN 20 MG TAB PO SCH (21:44)
[2017-10-27 22:51] VITALS: BP 117/56
[2017-10-28 05:51] VITALS: BP 125/59
[2017-10-28] MEDS: IPRATROPIUM BROM 0.5 MG/2.5ML INH SOL NEB SCH ×3 (06:23→18:44)
[2017-10-28] MEDS: ALBUTEROL SULF 2.5 MG/0.5ML(0.5%) NEB SOLN NEB SCH ×3 (06:23→18:45)
[2017-10-28 06:34] LABS: Basophils # (auto) 0 uL; Eosinophils # (auto) 0 uL; Hematocrit 26.5 % (41.0-53.0); Lymphocytes # (auto) 0.3 uL; Lymphocytes % (auto) 3.5 % (10.0-50.0); Mean Corpuscular Hemoglobin 33.6 pg (28.0-32.0); Mean Corpuscular Hgb Conc. 33.9 g/dL (32.0-36.0); Mean Corpuscular Volume 99.1 fL (80.0-100.0); Monocytes # (auto) 1.3 uL; Monocytes % (auto) 15.3 % (0.0-12.0); Neutrophils # (auto) 6.6 uL; Neutrophils % (auto) 81.2 % (37.0-80.0); Nucleated Red Blood Cells % 0.2 %; Platelet Count (auto) 167 10^3/uL (140-450); Red Blood Cells 2.67 10^6/uL (4.5-5.90); Red Cell Distribution Width 19.6 % (11.8-14.3); White Blood Cell 8.1 10^3/uL (4.4-10.8)
[2017-10-28 07:32] LABS: BUN/Creatinine Ratio 28.1; Calcium 8.1 mg/dL (8.5-10.1)
[2017-10-28] MEDS: TAMSULOSIN HYDROCHLORIDE 0.4 MG CAP PO SCH (08:32)
[2017-10-28 09:00] VITALS: BP 116/62
[2017-10-28] MEDS: LEVOFLOXACIN 500MG 100 ML IV SCH (09:44)
[2017-10-28] MEDS: predniSONE 20 MG TAB PO SCH (09:44)
[2017-10-28] MEDS: PANTOPRAZOLE 40 MG TAB PO SCH (09:45)
[2017-10-28] MEDS: FUROSEMIDE 40 MG TAB PO SCH (09:45)
[2017-10-28] MEDS: CARVEDILOL 3.125 MG TAB PO SCH ×2 (09:45→23:00)
[2017-10-28] MEDS: ALLOPURINOL 100 MG TAB PO SCH (09:46)
[2017-10-28] MEDS: ENOXAPARIN SOD 40 MG/0.4 ML SYRINGE SC SCH (09:46)
[2017-10-28 12:53] VITALS: BP 132/64
[2017-10-28 17:00] VITALS: BP 129/78
[2017-10-28 22:00] VITALS: BP 127/58
[2017-10-28] MEDS: ATORVASTATIN 20 MG TAB PO SCH (23:09)
[2017-10-29] VITALS (7 sets, daily range): BP systolic 108–138; BP diastolic 41–59
[2017-10-29] MEDS: IPRATROPIUM BROM 0.5 MG/2.5ML INH SOL NEB SCH ×4 (00:29→18:11)
[2017-10-29] MEDS: ALBUTEROL SULF 2.5 MG/0.5ML(0.5%) NEB SOLN NEB SCH ×4 (00:30→18:11)
[2017-10-29 07:24] LABS: Potassium 4.2 mmol/L (3.5-5.1)
[2017-10-29 07:29] LABS: BUN/Creatinine Ratio 26.1; Calcium 8.3 mg/dL (8.5-10.1)
[2017-10-29 07:39] LABS: Basophils # (auto) 0 uL; Basophils % (auto) 0.2 % (0.0-2.0); Eosinophils # (auto) 0 uL; Eosinophils % (auto) 0.2 % (0.0-7.0); Hematocrit 26.7 % (41.0-53.0); Lymphocytes # (auto) 0.5 uL; Lymphocytes % (auto) 5.4 % (10.0-50.0); Mean Corpuscular Hemoglobin 33.5 pg (28.0-32.0); Mean Corpuscular Hgb Conc. 33.7 g/dL (32.0-36.0); Mean Corpuscular Volume 99.5 fL (80.0-100.0); Monocytes # (auto) 1.3 uL; Monocytes % (auto) 14.8 % (0.0-12.0); Neutrophils % (auto) 79.4 % (37.0-80.0); Platelet Count (auto) 176 10^3/uL (140-450); Red Blood Cells 2.69 10^6/uL (4.5-5.90); Red Cell Distribution Width 19.8 % (11.8-14.3); White Blood Cell 8.8 10^3/uL (4.4-10.8)
[2017-10-29] MEDS: TAMSULOSIN HYDROCHLORIDE 0.4 MG CAP PO SCH (08:09)
[2017-10-29] MEDS: CARVEDILOL 3.125 MG TAB PO SCH ×2 (09:41→21:27)
[2017-10-29] MEDS: LEVOFLOXACIN 500MG 100 ML IV SCH (09:41)
[2017-10-29] MEDS: ALLOPURINOL 100 MG TAB PO SCH (09:41)
[2017-10-29] MEDS: FUROSEMIDE 40 MG TAB PO SCH (09:42)
[2017-10-29] MEDS: predniSONE 20 MG TAB PO SCH (09:42)
[2017-10-29] MEDS: PANTOPRAZOLE 40 MG TAB PO SCH (09:42)
[2017-10-29] MEDS: ATORVASTATIN 20 MG TAB PO SCH (21:23)
[2017-10-30] MEDS: IPRATROPIUM BROM 0.5 MG/2.5ML INH SOL NEB SCH ×3 (00:05→11:03)
[2017-10-30] MEDS: ALBUTEROL SULF 2.5 MG/0.5ML(0.5%) NEB SOLN NEB SCH ×3 (00:05→11:03)
[2017-10-30 05:00] VITALS: BP 148/49
[2017-10-30] MEDS: TAMSULOSIN HYDROCHLORIDE 0.4 MG CAP PO SCH (07:51)
[2017-10-30 08:00] VITALS: BP 102/51
[2017-10-30 08:33] VITALS: BP 102/51
[2017-10-30] MEDS: FUROSEMIDE 40 MG TAB PO SCH (10:10)
[2017-10-30] MEDS: ALLOPURINOL 100 MG TAB PO SCH (10:10)
[2017-10-30] MEDS: LEVOFLOXACIN 500MG 100 ML IV SCH (10:10)
[2017-10-30] MEDS: PANTOPRAZOLE 40 MG TAB PO SCH (10:10)
[2017-10-30] MEDS: CARVEDILOL 3.125 MG TAB PO SCH (10:11)
[2017-10-30] MEDS: predniSONE 20 MG TAB PO SCH (10:12)
[2017-10-30 13:01] VITALS: BP 105/50
== END 2017-10-30 15:00 | disposition home or self-care (01) | DRG 871 ==
LOC: ER 15:17 → TELE 15:18 → TELE-CENTR 20:20 → CENTRAL 10-28 11:53
PROVIDERS: ADMIT Internal Medicine; ATTEND Internal Medicine
PROC: 0W9B3ZZ Drainage of Left Pleural Cavity, Percutaneous Approach (ICD-10-PCS; principal; 2017-10-25)
DX: A41.9 Sepsis, unspecified organism (principal); J18.9 Pneumonia, unspecified organism; J96.21 Acute and chronic respiratory failure with hypoxia; N17.0 Acute kidney failure with tubular necrosis; I50.43 Acute on chronic combined systolic (congestive) and diastolic (congestive) heart failure; E44.0 Moderate protein-calorie malnutrition; G62.9 Polyneuropathy, unspecified; J90 Pleural effusion, not elsewhere classified; N13.8 Other obstructive and reflux uropathy; C34.92 Malignant neoplasm of unspecified part of left bronchus or lung; J44.0 Chronic obstructive pulmonary disease with (acute) lower respiratory infection; J44.1 Chronic obstructive pulmonary disease with (acute) exacerbation; N12 Tubulo-interstitial nephritis, not specified as acute or chronic; K43.9 Ventral hernia without obstruction or gangrene; N40.1 Benign prostatic hyperplasia with lower urinary tract symptoms; E66.9 Obesity, unspecified; E78.5 Hyperlipidemia, unspecified; D63.8 Anemia in other chronic diseases classified elsewhere; Z96.641 Presence of right artificial hip joint; K59.00 Constipation, unspecified; Z99.81 Dependence on supplemental oxygen; Z68.32 Body mass index [BMI] 32.0-32.9, adult; Z80.42 Family history of malignant neoplasm of prostate; Z82.3 Family history of stroke; Z82.49 Family history of ischemic heart disease and other diseases of the circulatory system; Z85.118 Personal history of other malignant neoplasm of bronchus and lung; Z87.891 Personal history of nicotine dependence; Z92.21 Personal history of antineoplastic chemotherapy; Z92.3 Personal history of irradiation; Z88.1 Allergy status to other antibiotic agents; Z88.6 Allergy status to analgesic agent; Z79.82 Long term (current) use of aspirin; Z79.899 Other long term (current) drug therapy; Z71.89 Other specified counseling; Z71.3 Dietary counseling and surveillance
CPT/HCPCS: 10022; 32555; 36415; 71045; 76604; 76775; 76942; 80048; 80053; 81001; 82550; 83735; 83880; 84443; 84484; 85007; 85025; 85027; 85610; 85730; 87086; 93005; 94640; 96374; J1956

== ENCOUNTER 2017-11-03 15:31 | Emergency (ER) | payer OTHER ==
[~2017-11-03] VITALS: Ht 175.3 cm; Wt 104.3 kg
[2017-11-03 15:40] VITALS: BP 146/116
== END 2017-11-03 17:56 | disposition home or self-care (01) ==
LOC: ER 15:34
DX: K43.9 Ventral hernia without obstruction or gangrene (principal); Z48.01 Encounter for change or removal of surgical wound dressing; J44.9 Chronic obstructive pulmonary disease, unspecified; I50.9 Heart failure, unspecified; E78.5 Hyperlipidemia, unspecified; Z88.6 Allergy status to analgesic agent
CPT/HCPCS: 99281; J1642

== ENCOUNTER 2017-11-04 21:09 | Emergency (ER) | payer OTHER ==
[~2017-11-04] VITALS: Ht 175.3 cm; Wt 104.3 kg
[2017-11-04 22:00] LABS: Hematocrit 33.3 % (41.0-53.0); Hemoglobin 11.2 g/dL (13.5-17.5); Mean Corpuscular Hemoglobin 33.8 pg (28.0-32.0); Mean Corpuscular Hgb Conc. 33.7 g/dL (32.0-36.0); Mean Corpuscular Volume 100.2 fL (80.0-100.0); Platelet Count (auto) 178 10^3/uL (140-450); Red Blood Cells 3.32 10^6/uL (4.5-5.90); Red Cell Distribution Width 19.5 % (11.8-14.3); White Blood Cell 12.1 10^3/uL (4.4-10.8)
[2017-11-04] MEDS ORDERED: ONDANSETRON HCL 4 MG/2 ML VIAL IV ONE (22:00)
[2017-11-04] MEDS ORDERED: MORPHINE SULFATE 4 MG/ML SYR/VIAL IV ONE (22:00)
[2017-11-04] MEDS ORDERED: MORPHINE SULFATE INJECTION 1 ML ONE (22:01)
[2017-11-04 22:02] LABS: Basophils % (manual) 0 (0.0-2.0); Blast Cells 0; Eosinophils % (manual) 0 (0-7); Myelocytes % 0; Promyelocytes % 0; Reactive Lymphocytes 0
[2017-11-04 22:26] LABS: INR 1.03 (0.9-1.15); Partial Thromboplastin Time 24.5 sec (23.78-33.04)
[2017-11-04 22:29] LABS: Band Neutrophils % (manual) 5; Lymphocytes % (manual) 7 (10.0-50.0); Metamyelocytes % 3; Monocytes % (manual) 6 (0-12)
[2017-11-04 22:31] LABS: Albumin 2.4 g/dL (3.4-5.0); BUN/Creatinine Ratio 21.6; Bilirubin, Total 0.2 mg/dL (0.2-1.0); Calcium 8.5 mg/dL (8.5-10.1); Potassium 4.1 mmol/L (3.5-5.1); Total Protein 5.8 g/dL (6.4-8.2)
[2017-11-04 22:52] LABS: Magnesium 1.8 mg/dL (1.6-2.6)
[2017-11-04 22:58] VITALS: BP 163/81
[2017-11-04 23:33] LABS: Urine Bacteria NONE SEEN /hpf (None Seen); Urine Blood 3+ /uL (Negative); Urine Mucus FEW (None Seen); Urine Specific Gravity 1.009 (1.001-1.035); Urine WBC 15 /hpf (0 - 3)
== END 2017-11-05 00:37 | disposition home or self-care (01) ==
LOC: EDBD 21:09 → ER 21:15
DX: T83.018A Breakdown (mechanical) of other urinary catheter, initial encounter (principal); J45.909 Unspecified asthma, uncomplicated; I50.9 Heart failure, unspecified; J44.9 Chronic obstructive pulmonary disease, unspecified; E11.9 Type 2 diabetes mellitus without complications; E78.5 Hyperlipidemia, unspecified; E66.01 Morbid (severe) obesity due to excess calories; Z79.82 Long term (current) use of aspirin; Z46.6 Encounter for fitting and adjustment of urinary device; Z68.34 Body mass index [BMI] 34.0-34.9, adult; Z79.899 Other long term (current) drug therapy
CPT/HCPCS: 36415; 51702; 74176; 80053; 81001; 83735; 83880; 84484; 85007; 85027; 85610; 85730; 96374; 96375; 99285; J2270; 93005

== ENCOUNTER → 2017-11-14 | Outpatient (CLI) | payer OTHER ==
[2017-11-14 14:48] LABS: Basophils # (auto) 0 uL; Basophils % (auto) 0.6 % (0.0-2.0); Eosinophils # (auto) 0.2 uL; Eosinophils % (auto) 3.9 % (0.0-7.0); Hematocrit 34.7 % (41.0-53.0); Hemoglobin 11.2 g/dL (13.5-17.5); Lymphocytes # (auto) 0.4 uL; Lymphocytes % (auto) 7.4 % (10.0-50.0); Mean Corpuscular Hemoglobin 31.8 pg (28.0-32.0); Mean Corpuscular Hgb Conc. 32.2 g/dL (32.0-36.0); Mean Corpuscular Volume 98.7 fL (80.0-100.0); Monocytes % (auto) 17.8 % (0.0-12.0); Neutrophils # (auto) 4.1 uL; Neutrophils % (auto) 70.3 % (37.0-80.0); Nucleated Red Blood Cells % 0.1 %; Platelet Count (auto) 144 10^3/uL (140-450); Red Blood Cells 3.52 10^6/uL (4.5-5.90); Red Cell Distribution Width 18.1 % (11.8-14.3); White Blood Cell 5.8 10^3/uL (4.4-10.8)
[2017-11-14 15:14] LABS: Albumin 2.3 g/dL (3.4-5.0); BUN/Creatinine Ratio 11.1; Bilirubin, Total 0.6 mg/dL (0.2-1.0); Calcium 8.4 mg/dL (8.5-10.1); Potassium 3.5 mmol/L (3.5-5.1)
== END | disposition home or self-care (01) ==
LOC: LAB 14:29
PROVIDERS: ATTEND Internal Medicine
DX: C34.12 Malignant neoplasm of upper lobe, left bronchus or lung (principal); I10 Essential (primary) hypertension; I50.23 Acute on chronic systolic (congestive) heart failure; J44.9 Chronic obstructive pulmonary disease, unspecified; E78.5 Hyperlipidemia, unspecified; E11.9 Type 2 diabetes mellitus without complications; J45.909 Unspecified asthma, uncomplicated
CPT/HCPCS: 36415; 80053; 83615; 85025

== ENCOUNTER → 2017-11-21 | Outpatient (CLI) | payer OTHER ==
[2017-11-21 15:05] LABS: Hematocrit 27.7 % (41.0-53.0); Hemoglobin 9.1 g/dL (13.5-17.5); Mean Corpuscular Hemoglobin 32.6 pg (28.0-32.0); Mean Corpuscular Hgb Conc. 32.9 g/dL (32.0-36.0); Mean Corpuscular Volume 99.1 fL (80.0-100.0); Platelet Count (auto) 65 10^3/uL (140-450); Red Cell Distribution Width 18.2 % (11.8-14.3); White Blood Cell 5.3 10^3/uL (4.4-10.8)
[2017-11-21 15:07] LABS: Band Neutrophils % (manual) 0; Basophils % (manual) 0 (0.0-2.0); Blast Cells 0; Myelocytes % 0; Promyelocytes % 0; Reactive Lymphocytes 0
[2017-11-21 15:49] LABS: Albumin 1.9 g/dL (3.4-5.0); BUN/Creatinine Ratio 17.8; Bilirubin, Total 0.4 mg/dL (0.2-1.0); Calcium 8.5 mg/dL (8.5-10.1); Potassium 3.9 mmol/L (3.5-5.1); Total Protein 5.4 g/dL (6.4-8.2)
[2017-11-21 17:52] LABS: Eosinophils % (manual) 2 (0-7); Lymphocytes % (manual) 10 (10.0-50.0); Metamyelocytes % 1; Monocytes % (manual) 3 (0-12)
== END | disposition home or self-care (01) ==
LOC: LAB 14:27
PROVIDERS: ATTEND Internal Medicine
DX: C34.12 Malignant neoplasm of upper lobe, left bronchus or lung (principal); J44.9 Chronic obstructive pulmonary disease, unspecified; I10 Essential (primary) hypertension; E11.9 Type 2 diabetes mellitus without complications; E78.5 Hyperlipidemia, unspecified; Z79.82 Long term (current) use of aspirin; Z79.899 Other long term (current) drug therapy
CPT/HCPCS: 36415; 80053; 83615; 85007; 85027

== ENCOUNTER → 2017-12-04 | Outpatient (CLI) | payer OTHER ==
[2017-12-04 14:20] LABS: Hematocrit 30.8 % (41.0-53.0); Hemoglobin 10.1 g/dL (13.5-17.5); Mean Corpuscular Hemoglobin 32.5 pg (28.0-32.0); Mean Corpuscular Hgb Conc. 32.6 g/dL (32.0-36.0); Mean Corpuscular Volume 99.7 fL (80.0-100.0); Platelet Count (auto) 220 10^3/uL (140-450); Red Blood Cells 3.09 10^6/uL (4.5-5.90); Red Cell Distribution Width 19.5 % (11.8-14.3); White Blood Cell 3.2 10^3/uL (4.4-10.8)
[2017-12-04 14:29] LABS: Basophils % (manual) 0 (0.0-2.0); Blast Cells 0; Promyelocytes % 0; Reactive Lymphocytes 0
[2017-12-04 14:46] LABS: BUN/Creatinine Ratio 8.2; Bilirubin, Total 0.3 mg/dL (0.2-1.0); Calcium 8.6 mg/dL (8.5-10.1); Potassium 4.4 mmol/L (3.5-5.1); Total Protein 5.7 g/dL (6.4-8.2)
[2017-12-04 14:49] LABS: Band Neutrophils % (manual) 1; Eosinophils % (manual) 3 (0-7); Lymphocytes % (manual) 16 (10.0-50.0); Monocytes % (manual) 22 (0-12)
[2017-12-04 14:50] LABS: Metamyelocytes % 1; Myelocytes % 1
== END | disposition home or self-care (01) ==
LOC: LAB 13:59
PROVIDERS: ATTEND Internal Medicine
DX: C34.12 Malignant neoplasm of upper lobe, left bronchus or lung (principal); E11.9 Type 2 diabetes mellitus without complications; I10 Essential (primary) hypertension; E78.5 Hyperlipidemia, unspecified; J44.9 Chronic obstructive pulmonary disease, unspecified; Z79.899 Other long term (current) drug therapy
CPT/HCPCS: 36415; 80053; 83615; 85007; 85027

== ENCOUNTER → 2017-12-15 | Outpatient (CLI) | payer OTHER ==
[2017-12-15 14:40] LABS: Basophils # (auto) 0.1 uL; Basophils % (auto) 1.2 % (0.0-2.0); Eosinophils # (auto) 0.2 uL; Eosinophils % (auto) 4.9 % (0.0-7.0); Hemoglobin 10.8 g/dL (13.5-17.5); Lymphocytes # (auto) 0.5 uL; Lymphocytes % (auto) 10.2 % (10.0-50.0); Mean Corpuscular Hemoglobin 32.8 pg (28.0-32.0); Mean Corpuscular Hgb Conc. 32.8 g/dL (32.0-36.0); Mean Corpuscular Volume 100.1 fL (80.0-100.0); Monocytes # (auto) 0.8 uL; Monocytes % (auto) 16.4 % (0.0-12.0); Neutrophils # (auto) 3.3 uL; Neutrophils % (auto) 67.3 % (37.0-80.0); Platelet Count (auto) 150 10^3/uL (140-450); Red Cell Distribution Width 18.6 % (11.8-14.3); White Blood Cell 4.8 10^3/uL (4.4-10.8)
[2017-12-15 15:05] LABS: Albumin 2.1 g/dL (3.4-5.0); BUN/Creatinine Ratio 8.7; Bilirubin, Total 0.4 mg/dL (0.2-1.0); Calcium 8.4 mg/dL (8.5-10.1); Potassium 3.5 mmol/L (3.5-5.1); Total Protein 5.7 g/dL (6.4-8.2)
== END | disposition home or self-care (01) ==
LOC: LAB 14:26
PROVIDERS: ATTEND Internal Medicine
DX: C34.12 Malignant neoplasm of upper lobe, left bronchus or lung (principal); E78.5 Hyperlipidemia, unspecified; I11.0 Hypertensive heart disease with heart failure; I50.9 Heart failure, unspecified; E11.9 Type 2 diabetes mellitus without complications; Z79.899 Other long term (current) drug therapy
CPT/HCPCS: 36415; 80053; 83615; 85025

== ENCOUNTER → 2018-01-29 | Outpatient (CLI) | payer OTHER ==
[2018-01-29 14:40] LABS: BUN/Creatinine Ratio 12.2; Bilirubin, Total 0.3 mg/dL (0.2-1.0); Calcium 8.4 mg/dL (8.5-10.1); Potassium 4.2 mmol/L (3.5-5.1); Total Protein 6.2 g/dL (6.4-8.2)
[2018-01-29 14:42] LABS: Basophils # (auto) 0 uL; Basophils % (auto) 0.7 % (0.0-2.0); Eosinophils # (auto) 0.3 uL; Eosinophils % (auto) 5.6 % (0.0-7.0); Hematocrit 33.1 % (41.0-53.0); Hemoglobin 10.7 g/dL (13.5-17.5); Lymphocytes # (auto) 0.5 uL; Lymphocytes % (auto) 10.5 % (10.0-50.0); Mean Corpuscular Hemoglobin 31.3 pg (28.0-32.0); Mean Corpuscular Hgb Conc. 32.4 g/dL (32.0-36.0); Mean Corpuscular Volume 96.6 fL (80.0-100.0); Monocytes # (auto) 0.6 uL; Monocytes % (auto) 12.5 % (0.0-12.0); Neutrophils # (auto) 3.5 uL; Neutrophils % (auto) 70.7 % (37.0-80.0); Platelet Count (auto) 190 10^3/uL (140-450); Red Blood Cells 3.43 10^6/uL (4.5-5.90); Red Cell Distribution Width 16.5 % (11.8-14.3)
== END | disposition home or self-care (01) ==
LOC: LAB 13:59
PROVIDERS: ATTEND Internal Medicine
DX: C34.12 Malignant neoplasm of upper lobe, left bronchus or lung (principal); J44.9 Chronic obstructive pulmonary disease, unspecified; E11.9 Type 2 diabetes mellitus without complications
CPT/HCPCS: 36415; 80053; 83615; 85025

== ENCOUNTER 2018-02-05 13:55 | Inpatient (IN) | payer OTHER ==
[~2018-02-05] VITALS: Ht 175.3 cm; Wt 92.9 kg
[2018-02-05 14:37] LABS: Basophils # (auto) 0.1 uL; Basophils % (auto) 1.3 % (0.0-2.0); Eosinophils # (auto) 0.1 uL; Hematocrit 35.8 % (41.0-53.0); Hemoglobin 11.5 g/dL (13.5-17.5); Lymphocytes # (auto) 0.8 uL; Lymphocytes % (auto) 11.1 % (10.0-50.0); Mean Corpuscular Hemoglobin 31.5 pg (28.0-32.0); Mean Corpuscular Hgb Conc. 32.1 g/dL (32.0-36.0); Monocytes % (auto) 13.5 % (0.0-12.0); Neutrophils # (auto) 5.3 uL; Neutrophils % (auto) 73.1 % (37.0-80.0); Platelet Count (auto) 202 10^3/uL (140-450); Red Blood Cells 3.65 10^6/uL (4.5-5.90); Red Cell Distribution Width 16.5 % (11.8-14.3); White Blood Cell 7.2 10^3/uL (4.4-10.8)
[2018-02-05 14:49] LABS: Albumin 2.2 g/dL (3.4-5.0); Anion Gap 8 (5-15); BUN/Creatinine Ratio 16.3; Blood Urea Nitrogen 13 mg/dL (7-18); Calcium 8.5 mg/dL (8.5-10.1); Carbon Dioxide 29 mmol/L (21-32); Chloride 105 mmol/L (98-107); GFR African American 122 mL/min; GFR Non-African American 101 mL/min; Glucose 81 mg/dL (74-106); Potassium 4.5 mmol/L (3.5-5.1); Sodium 142 mmol/L (136-145)
[2018-02-05 15:07] LABS: Alanine Aminotransferase 13 U/L (16-61); Alkaline Phosphatase 64 U/L (45-117); Aspartate Aminotransferase 19 U/L (15-37); Bilirubin, Total 0.4 mg/dL (0.2-1.0); Total Protein 6.6 g/dL (6.4-8.2)
[2018-02-05] MEDS ORDERED: LEVOFLOXACIN 500MG 100 ML IV ONE (15:45)
[2018-02-05] MEDS ORDERED: NITROGLYCERIN 0.4 MG SL TAB SL PRN (15:45)
[2018-02-05] MEDS ORDERED: MORPHINE SULF INJ 2 MG/ML SYRINGE 1ML IV PRN (15:45)
[2018-02-05] MEDS: IPRATROPIUM BROM 0.5 MG/2.5ML INH SOL NEB SCH ×2 (17:44→23:43)
[2018-02-05] MEDS: ALBUTEROL SULF 2.5 MG/0.5ML(0.5%) NEB SOLN NEB SCH ×2 (17:44→23:43)
[2018-02-05] MEDS ORDERED: PROMETHAZINE HCL 25 MG/ML 1ML IV ONE (18:15)
[2018-02-05] MEDS ORDERED: NALOXONE HCL 0.4 MG/ML VIAL ONE ×2 (18:39→18:45)
[2018-02-05] MEDS ORDERED: NALOXONE HCL 0.4 MG/ML VIAL IV ONE ×3 (18:45→19:00)
[2018-02-05 20:01] VITALS: BP 134/75
[2018-02-05 21:30] VITALS: BP 137/63
[2018-02-05 22:34] VITALS: BP 137/63
[2018-02-06 05:00] VITALS: BP 140/46
[2018-02-06] MEDS: IPRATROPIUM BROM 0.5 MG/2.5ML INH SOL NEB SCH ×3 (06:18→18:35)
[2018-02-06] MEDS: ALBUTEROL SULF 2.5 MG/0.5ML(0.5%) NEB SOLN NEB SCH ×3 (06:18→18:35)
[2018-02-06 07:37] LABS: Basophils # (auto) 0.1 uL; Basophils % (auto) 0.8 % (0.0-2.0); Eosinophils # (auto) 0.1 uL; Eosinophils % (auto) 0.7 % (0.0-7.0); Hemoglobin 10.4 g/dL (13.5-17.5); INR 1.1 (0.9-1.15); Lymphocytes # (auto) 0.5 uL; Lymphocytes % (auto) 7.3 % (10.0-50.0); Mean Corpuscular Hemoglobin 31.6 pg (28.0-32.0); Mean Corpuscular Hgb Conc. 32.5 g/dL (32.0-36.0); Mean Corpuscular Volume 97.1 fL (80.0-100.0); Monocytes # (auto) 1.1 uL; Monocytes % (auto) 14.8 % (0.0-12.0); Neutrophils # (auto) 5.8 uL; Neutrophils % (auto) 76.4 % (37.0-80.0); Nucleated Red Blood Cells % 0.1 %; Partial Thromboplastin Time 30.3 sec (23.78-33.04); Platelet Count (auto) 194 10^3/uL (140-450); Prothrombin Time 11.7 sec (9.27-12.13); Red Blood Cells 3.29 10^6/uL (4.5-5.90); Red Cell Distribution Width 15.9 % (11.8-14.3); White Blood Cell 7.5 10^3/uL (4.4-10.8)
[2018-02-06 07:49] LABS: Calcium 8.4 mg/dL (8.5-10.1); Potassium 4.5 mmol/L (3.5-5.1)
[2018-02-06 08:47] VITALS: BP 104/64
[2018-02-06] MEDS ORDERED: POTASSIUM EFFERVESENT TAB 25 MEQ GT ONE (10:30)
[2018-02-06] MEDS ORDERED: FUROSEMIDE 20 MG/2 ML VIAL IV ONE (10:30)
[2018-02-06] MEDS: LEVOFLOXACIN 500MG 100 ML IV SCH (11:23)
[2018-02-06 12:56] VITALS: BP 131/60
[2018-02-06 17:10] VITALS: BP 126/57
[2018-02-06] MEDS: Ensure Enlive Strawberry 8oz Bottle PO SCH (18:06)
[2018-02-06 21:21] VITALS: BP 109/48
[2018-02-07 04:43] VITALS: BP 107/47
[2018-02-07] MEDS: IPRATROPIUM BROM 0.5 MG/2.5ML INH SOL NEB SCH ×5 (06:51→23:55)
[2018-02-07] MEDS: ALBUTEROL SULF 2.5 MG/0.5ML(0.5%) NEB SOLN NEB SCH ×5 (06:51→23:55)
[2018-02-07 07:11] LABS: Calcium 8.5 mg/dL (8.5-10.1); Potassium 4.3 mmol/L (3.5-5.1)
[2018-02-07 07:15] LABS: BUN/Creatinine Ratio 22.7
[2018-02-07 08:00] VITALS: BP 128/71
[2018-02-07 08:37] VITALS: BP 128/71
[2018-02-07] MEDS: Ensure Enlive Strawberry 8oz Bottle PO SCH ×3 (09:02→18:23)
[2018-02-07] MEDS: LEVOFLOXACIN 500MG 100 ML IV SCH (10:07)
[2018-02-07 12:43] VITALS: BP 130/69
[2018-02-07 17:07] VITALS: BP 105/46
[2018-02-07 21:43] VITALS: BP 117/64
[2018-02-08 04:51] VITALS: BP 118/55
[2018-02-08] MEDS: ALBUTEROL SULF 2.5 MG/0.5ML(0.5%) NEB SOLN NEB SCH ×2 (07:42→11:56)
[2018-02-08] MEDS: IPRATROPIUM BROM 0.5 MG/2.5ML INH SOL NEB SCH ×2 (07:42→11:56)
[2018-02-08 08:00] VITALS: BP 112/55
[2018-02-08] MEDS: Ensure Enlive Strawberry 8oz Bottle PO SCH ×2 (08:00→12:11)
[2018-02-08 08:07] VITALS: BP 112/55
[2018-02-08 08:55] VITALS: BP 112/55
[2018-02-08] MEDS: LEVOFLOXACIN 500MG 100 ML IV SCH (10:09)
[2018-02-08 12:30] VITALS: BP 119/60
[2018-02-08 13:32] VITALS: BP 119/60
== END 2018-02-08 17:38 | disposition hospice, home (50) | DRG 180 ==
LOC: EDBD 13:55 → ER 14:00 → TELE 14:01 → TELE-WESTW 21:19
PROVIDERS: ADMIT Internal Medicine; ATTEND Internal Medicine
PROC: 0W9B3ZZ Drainage of Left Pleural Cavity, Percutaneous Approach (ICD-10-PCS; principal; 2018-02-05)
DX: C34.92 Malignant neoplasm of unspecified part of left bronchus or lung (principal); I50.33 Acute on chronic diastolic (congestive) heart failure; J96.20 Acute and chronic respiratory failure, unspecified whether with hypoxia or hypercapnia; E43 Unspecified severe protein-calorie malnutrition; J98.19 Other pulmonary collapse; J91.0 Malignant pleural effusion; E78.5 Hyperlipidemia, unspecified; D64.9 Anemia, unspecified; K42.9 Umbilical hernia without obstruction or gangrene; J44.9 Chronic obstructive pulmonary disease, unspecified; E11.40 Type 2 diabetes mellitus with diabetic neuropathy, unspecified; R33.8 Other retention of urine; N40.1 Benign prostatic hyperplasia with lower urinary tract symptoms; Z51.5 Encounter for palliative care; Z85.118 Personal history of other malignant neoplasm of bronchus and lung; Z87.891 Personal history of nicotine dependence; Z74.01 Bed confinement status; Z88.5 Allergy status to narcotic agent; Z68.30 Body mass index [BMI] 30.0-30.9, adult
CPT/HCPCS: 10022; 32555; 36415; 70450; 71045; 76942; 80048; 80053; 83735; 84484; 85025; 85610; 85730; 93005; 94640; 96365; 96375; 96376; A6257; J1642; J1956